=== PATIENT | male | born 1990 | race Caucasian/White ===

== ENCOUNTER 2016-09-05 13:30 | Emergency (ER) | payer MEDICAID ==
[2016-09-05 13:43] VITALS: BP 149/93
[2016-09-05] MEDS ORDERED: Ondansetron 4 MG Tab.DIS PO ONE (13:54)
--- NOTE | 2016-09-05 14:00 | EDM.PDOC ---
ED HPI GENERAL MEDICAL PROBLEM - General Chief Complaint: Abdominal Pain Stated Complaint: ABD PAIN Time Seen by Provider: 09/05/16 13:33 - History of Present Illness INITIAL COMMENTS - FREE TEXT/NARRATIVE: HISTORY AND PHYSICAL: History of present illness: The patient is a 26 y/o male with a long history of kidney stones, almost always on the left side, and presents with left flank pain radiating to the groin. According to the patient he was seen in the ED and at 2 weeks ago and had a CAT scan performed at that time telling him he had 3 kidney stones on the left. The patient states he was not given anything for pain and had a Zofran ODT to help manage the nausea and in the past he has always been able to pass these spontaneously. The patient states that the pain returned and was very strong and he was on his way here when he stopped at the gas station and the pain seemed to improve dramatically but he came here anyway. Patient states he has been vomiting all night and the Zofran has helped but he ran out. Currently in the ED the patient states his pain is manageable and he does not want pain meds but he is concerned about the nausea and would like a prescription for Zofran. He doesn't have any urinary complaints such as dysuria frequency or urgency and no hematuria. He has no diffuse abdominal pain and the pain is experiencing in the flank is similar to prior kidney stones. He has not had fever chills or diarrhea. Review of systems: As per history of present illness and below otherwise all systems reviewed and negative. Past medical history: As per history of present illness and as reviewed below otherwise noncontributory. Surgical history: As per history of present illness and as reviewed below otherwise noncontributory. Social history: No reported history of drug or alcohol abuse. Family history: As per history of present illness and as reviewed below otherwise noncontributory. Physical exam: General: Well-developed overweight male who is nontoxic and looks comfortable in the ED without distress. Vital signs been reviewed by me HEENT: Atraumatic, normocephalic, negative for conjunctival pallor or scleral icterus, mucous membranes moist, throat clear, neck supple, nontender, trachea midline. Lungs: Clear to auscultation, breath sounds equal bilaterally, chest nontender. Heart: S1S2, regular, negative for clicks, rubs, or JVD. Abdomen: Soft, nondistended, nontender without any reproducible pain. Negative for masses or hepatosplenomegaly. Negative for costovertebral tenderness. Genitourinary: Deferred. Rectal: Deferred. Extremities: Atraumatic, negative for cords or calf pain. Neurovascular unremarkable. Neuro: Awake, alert, oriented. Cranial nerves II through XII unremarkable. Cerebellum unremarkable. Motor and sensory unremarkable throughout. Exam nonfocal. Back: There are no midline step-offs or defects of the rest of the lumbar spine no CVA tenderness and no paralumbar or musculoskeletal discomfort on palpation Diagnostics: CBC CMP UA abdominal x-ray urine culture I discussed with the patient at length that a CT scan would be indicated to see whether or not the stone was too large to pass or if there was significant hydronephrosis or other abnormalities that would mandate admission and/or emergency urologic care. The patient insists that he does not want to have a CAT scan today and understands the risks and my concerns and accepts them. He did agree to an abdominal x-ray. He is aware that this may or may not be able to show the kidney stone. Therapeutics: Zofran ODT--- the patient was offered an IV, IV fluids IV pain meds and IV Zofran which he declines at this time. He says that the pain is manageable but he would like to Zofran only. Patient is aware of all testing results and he still would like to do further CAT scan as he's having minimal pain. Patient wants to return to work tonight and does want to Zofran for home. He is aware of my concerns that we cannot fully evaluated kidney stones and their location or any compromise to the kidney and he accepts that still. He is aware he can return at any time they have advised him on other reasons to return to the ED Impression: Left flank pain with history of kidney stones stable Definitive disposition and diagnosis as appropriate pending reevaluation and review of above. Treatments IN HOUSE COUNSEL: Reports: NSAIDS Lower Abdominal Pain Score (Numeric/FACES): 7 - Related Data Allergies Allergy/AdvReac Type Severity Reaction Status Date / Time adhesive tape Allergy Blisters Verified 09/05/16 13:37 diphenhydramine HCl Allergy Cannot Verified 09/05/16 13:37 [From Benadryl] Remember latex Allergy Blisters Verified 09/05/16 13:37 Home Meds: Home Meds RABEprazole Sodium [Rabeprazole Sodium] 1 tab PO BID 06/03/16 [History] Adalimumab [Humira] 40 mg SQ ASDIRECTED 09/05/16 [History] Past Medical History HEENT History: Reports: None Cardiovascular History: Reports: None Respiratory History: Reports: None Gastrointestinal History: Reports: GERD Genitourinary History: Reports: Renal calculus Musculoskeletal History: Reports: Fracture Other Musculoskeletal History: hx of fx right arm and both feet Neurological History: Reports: Concussion, Other (see below) Other Neuro History: hx of motion sickness Psychiatric History: Reports: Anxiety Endocrine/Metabolic History: Reports: Obesity/BMI 30+ Hematologic History: Reports: None Immunologic History: Reports: None Oncologic (Cancer) History: Reports: None Dermatologic History: Reports: Psoriasis Other Dermatologic History: taking Humira - Past Surgical History Head Surgeries/Procedures: Reports: None HEENT Surgical History: Reports: Tonsillectomy Cardiovascular Surgical History: Reports: None Respiratory Surgical History: Reports: None GI Surgical History: Reports: None Male Surgical History: Reports: None Endocrine Surgical History: Reports: None Neurological Surgical History: Reports: None Musculoskeletal Surgical History: Reports: None Oncologic Surgical History: Reports: None Dermatological Surgical History: Reports: None Social & Family History - Family History Family Medical History: Noncontributory - Tobacco Use Smoking Status *Q: Never Smoker Years of Tobacco use: 2 Packs/Tins Daily: 1 - Caffeine Use Caffeine Use: Reports: Soda Other Caffeine Use: 2 cans daily - Recreational Drug Use Recreational Drug Use: No Drug Use in Last 12 Months: No ED ROS GENERAL - Review of Systems Review Of Systems: ROS reveals no pertinent complaints other than HPI. ED EXAM, GENERAL - Physical Exam Exam: See Below (See dictation) Course - Vital Signs Last Recorded V/S: Last Vital Signs Temp 36.8 C 09/05/16 13:39 Pulse 105 H 09/05/16 13:39 Resp 16 09/05/16 13:39 BP 149/93 H 09/05/16 13:39 Pulse Ox 93 L 09/05/16 13:39 - Orders/Labs/Meds Orders: Active Orders 24 hr Category Date Time Status Abdomen 1V Flat [CR] Stat Exams 09/05/16 14:01 Taken CULTURE URINE [RM] Stat Lab 09/05/16 14:00 Received Labs: Laboratory Tests 09/05/16 09/05/16 09/05/16 Range/Units 14:00 14:20 14:20 WBC 6.73 (4.0-11.0) K/uL RBC 5.15 (4.50-5.90) M/uL Hgb 14.6 (13.0-17.0) g/dL Hct 43.8 (38.0-50.0) % MCV 85.0 (80.0-98.0) fL MCH 28.3 (27.0-32.0) pg MCHC 33.3 (31.0-37.0) g/dL RDW Std Deviation 37.4 (28.0-62.0) fl RDW Coeff of Nicolle 12 (11.0-15.0) % Plt Count 200 (150-400) K/uL MPV 10.20 (7.40-12.00) fL Neut % (Auto) 49.6 (48.0-80.0) % Lymph % (Auto) 39.4 (16.0-40.0) % [place] % (Auto) 8.2 (0.0-15.0) % Eos % (Auto) 2.5 (0.0-7.0) % Baso % (Auto) 0.3 (0.0-1.5) % Neut # (Auto) 3.3 (1.4-5.7) K/uL Lymph # (Auto) 2.7 H (0.6-2.4) K/uL [place] # (Auto) 0.6 (0.0-0.8) K/uL Eos # (Auto) 0.2 (0.0-0.7) K/uL Baso # (Auto) 0.0 (0.0-0.1) K/uL Nucleated RBC % 0.0 /100WBC Nucleated RBCs # 0 K/uL Sodium 140 (136-146) mmol/L Potassium 4.3 (3.5-5.1) mmol/L Chloride 110 (98-110) mmol/L Carbon Dioxide 24 (21-31) mmol/L BUN 11 (6.0-23.0) mg/dL Creatinine 0.8 (0.6-1.5) mg/dL Est Cr Clr Drug Dosing 153.58 mL/min Estimated GFR (MDRD) > 60.0 ml/min Glucose 95 (60-110) mg/dL Calcium 9.1 (8.8-10.8) mg/dL Total Bilirubin 0.4 (0.1-1.5) mg/dL AST 15 (5-40) IU/L ALT 24 (8-54) IU/L Alkaline Phosphatase 42 (40-150) Total Protein 6.8 (6.0-8.0) g/dL Albumin 4.0 (3.5-5.0) g/dL Globulin 2.8 (2.0-3.5) g/dL Albumin/Globulin Ratio 1.4 (1.3-2.8) Urine Color YELLOW Urine Appearance CLEAR Urine pH 5.5 (5.0-8.0) Ur Specific [place] 1.020 (1.001-1.035) Urine Protein NEGATIVE (NEGATIVE) mg/dL Urine Glucose (UA) NEGATIVE (NEGATIVE) mg/dL Urine Ketones NEGATIVE (NEGATIVE) mg/dL Urine Occult Blood TRACE-INTACT (NEGATIVE) Urine Nitrite NEGATIVE (NEGATIVE) Urine Bilirubin NEGATIVE (NEGATIVE) Urine Urobilinogen 0.2 (<2.0) EU/dL Ur Leukocyte Esterase NEGATIVE (NEGATIVE) Urine RBC 0-3 (0-2/HPF) Urine WBC 0-2 (0-5/HPF) Ur Epithelial Cells RARE (NONE-FEW) Ur Renal Epithelial Cell RARE Urine Bacteria RARE (NEGATIVE) Meds: Medications Discontinued Medications Generic Name Dose Route Start Last Admin Trade Name Freq PRN Reason Stop Dose Admin Ondansetron HCl 4 mg 09/05/16 13:54 09/05/16 13:59 Zofran Odt PO 09/05/16 13:55 4 mg ONETIME ONE Administration Departure - Departure Time of Disposition: 15:12 Disposition: Home, Self-Care 01 Condition: good Clinical Impression: Left flank pain Forms: ED Department Discharge Additional Instructions: The following information is given to patients seen in the emergency department who are being discharged to home. This information is to outline your options for follow-up care. We provide all patients seen in our emergency department with a follow-up referral. The need for follow-up, as well as the timing and circumstances, are variable depending upon the specifics of your emergency department visit. If you don't have a primary care physician on staff, we will provide you with a referral. We always advise you to contact your personal physician following an emergency department visit to inform them of the circumstance of the visit and for follow-up with them and/or the need for any referrals to a consulting specialist. The emergency department will also refer you to a specialist when appropriate. This referral assures that you have the opportunity for followup care with a specialist. All of these measure are taken in an effort to provide you with optimal care, which includes your followup. Under all circumstances we always encourage you to contact your private physician who remains a resource for coordinating your care. When calling for followup care, please make the office aware that this follow-up is from your recent emergency room visit. If for any reason you are refused follow-up, please contact the [facility] emergency department at and ask to speak to the emergency department charge nurse. [facility] Primary care- Internal Medicine and Family [facility] [address] [place] [id number] [facility] Specialty Care-Urology [address] [place] [id number] Push hydration and avoid caffeinated products. Use Zofran as needed and over- the-counter Tylenol or ibuprofen for pain. Please return to ER as needed and as discussed. Please followup with primary care and/or our urologist for further care and evaluation - My Orders Last 24 Hours: My Active Orders 09/05/16 14:00 CULTURE URINE [RM] Stat 09/05/16 14:01 Abdomen 1V Flat [CR] Stat - Assessment/Plan Last 24 Hours: My Active Orders 09/05/16 14:00 CULTURE URINE [RM] Stat 09/05/16 14:01 Abdomen 1V Flat [CR] Stat
[2016-09-05 14:52] LABS: CHLORIDE,CL 110 mmol/L (98-110); SODIUM,NA 140 mmol/L (136-146)
--- NOTE | 2016-09-07 10:32 | CR ---
EXAM DATE: 09/05/16 PATIENT'S AGE: 26 Patient: LANA MONCADA Facility: [place], [place] Site . Site : 1990 Study: XRay Abdomen [id number] 2:12:23 PM Ordering Physician: Sonya Taylor Final Report: HISTORY: Abdominal pain and history of stones. Comparison: None. Findings: Normal bowel gas pattern. No evidence for renal or ureteral stones. Moderate amount of stool present. Dictated by María Diehl MD @ Sep 05 2016 2:56PM (Electronic Signature) Report Signed by Proxy and Original Signed Document filed in the Medical Record. MTDD
== END 2016-09-05 15:31 | disposition home or self-care (01) ==
LOC: MW.ED 13:30
DX: R10.30 Lower abdominal pain, unspecified (principal); R11.10 Vomiting, unspecified; K21.9 Gastro-esophageal reflux disease without esophagitis; E66.9 Obesity, unspecified; Z88.6 Allergy status to analgesic agent; Z88.8 Allergy status to other drugs, medicaments and biological substances; Z91.040 Latex allergy status; Z79.899 Other long term (current) drug therapy; Z87.442 Personal history of urinary calculi; Z68.30 Body mass index [BMI] 30.0-30.9, adult; Z98.890 Other specified postprocedural states
CPT/HCPCS: 36415; 74000; 80053; 81001; 85025; 87086; 99284; A9270; 99283

== ENCOUNTER 2016-09-27 21:17 | Emergency (ER) | payer MEDICAID ==
[2016-09-27] MEDS ORDERED: HYDROmorphone 2 MG/ML Syringe IVPUSH ONE (21:33)
[2016-09-27] MEDS ORDERED: Ketorolac 30 MG/ML SDV IVPUSH ONE (21:33)
[2016-09-27] MEDS ORDERED: Tamsulosin 0.4 MG Cap.ER PO ONE (21:33)
[2016-09-27] MEDS ORDERED: Sodium Chloride 0.9% 1,000 ML IV ONE (21:33)
[2016-09-27] MEDS ORDERED: Ondansetron 4 MG/2 ML SDV IVPUSH ONE ×2 (21:33→22:45)
--- NOTE | 2016-09-27 21:37 | EDM.PDOC ---
ED HPI GENERAL MEDICAL PROBLEM - General Chief Complaint: Gastrointestinal Problem Stated Complaint: POSSIBLE KIDNEY STONES Time Seen by Provider: 09/27/16 21:29 - History of Present Illness INITIAL COMMENTS - FREE TEXT/NARRATIVE: HISTORY AND PHYSICAL: History of present illness: Patient is 26-year-old white male history urolithiasis concern of left-sided abdominal pain consistent with recurrence of his kidney stones. He had associated nausea and vomiting has been worse for the last several days he had similar episode several weeks prior he has been seen by urology in the past no fever chills no trauma no other complaints Review of systems: As per history of present illness and below otherwise all systems reviewed and negative. Past medical history: As per history of present illness and as reviewed below otherwise noncontributory. Surgical history: As per history of present illness and as reviewed below otherwise noncontributory. Social history: No reported history of drug or alcohol abuse. Family history: As per history of present illness and as reviewed below otherwise noncontributory. Physical exam: HEENT: Atraumatic, normocephalic, pupils reactive, negative for conjunctival pallor or scleral icterus, mucous membranes moist, throat clear, neck supple, nontender, trachea midline. Lungs: Clear to auscultation, breath sounds equal bilaterally, chest nontender. Heart: S1S2, regular, negative for clicks, rubs, or JVD. Abdomen: Soft, nondistended, nontender. Negative for masses or hepatosplenomegaly. Negative for costovertebral tenderness. Pelvis: Stable nontender. Genitourinary: Deferred. Rectal: Deferred. Extremities: Atraumatic, negative for cords or calf pain. Neurovascular unremarkable. Neuro: Awake, alert, oriented. Cranial nerves II through XII unremarkable. Cerebellum unremarkable. Motor and sensory unremarkable throughout. Exam nonfocal. Diagnostics: CBC CMP UA CT abdomen and pelvis urine Therapeutics: Saline 1 L bolus Dilaudid 1 mg IV Zofran thermograms IV Toradol 30 mg IV Flomax 0.4 mg by mouth Impression: #1 left-sided abdominal pain #2 history urolithiasis Definitive disposition and diagnosis as appropriate pending reevaluation and review of above. Left Lower Pelvic Pain Score (Numeric/FACES): 10 - Related Data Allergies Allergy/AdvReac Type Severity Reaction Status Date / Time adhesive tape Allergy Blisters Verified 09/27/16 22:01 diphenhydramine HCl Allergy Cannot Verified 09/27/16 22:01 [From Benadryl] Remember latex Allergy Blisters Verified 09/27/16 22:01 Home Meds: Home Meds RABEprazole Sodium [Rabeprazole Sodium] 1 tab PO BID 06/03/16 [History] Adalimumab [Humira] 40 mg SQ ASDIRECTED 09/05/16 [History] Past Medical History HEENT History: Reports: None Cardiovascular History: Reports: None Respiratory History: Reports: None Gastrointestinal History: Reports: GERD Genitourinary History: Reports: Renal calculus Musculoskeletal History: Reports: Fracture Other Musculoskeletal History: hx of fx right arm and both feet Neurological History: Reports: Concussion, Other (see below) Other Neuro History: hx of motion sickness Psychiatric History: Reports: Anxiety Endocrine/Metabolic History: Reports: Obesity/BMI 30+ Hematologic History: Reports: None Immunologic History: Reports: None Oncologic (Cancer) History: Reports: None Dermatologic History: Reports: Psoriasis Other Dermatologic History: taking Humira - Past Surgical History Head Surgeries/Procedures: Reports: None HEENT Surgical History: Reports: Tonsillectomy Cardiovascular Surgical History: Reports: None Respiratory Surgical History: Reports: None GI Surgical History: Reports: None Male Surgical History: Reports: None Endocrine Surgical History: Reports: None Neurological Surgical History: Reports: None Musculoskeletal Surgical History: Reports: None Oncologic Surgical History: Reports: None Dermatological Surgical History: Reports: None Social & Family History - Family History Family Medical History: Noncontributory - Tobacco Use Smoking Status *Q: Never Smoker Years of Tobacco use: 2 Packs/Tins Daily: 1 - Caffeine Use Caffeine Use: Reports: Soda Other Caffeine Use: 2 cans daily - Recreational Drug Use Recreational Drug Use: No Drug Use in Last 12 Months: No ED ROS GENERAL - Review of Systems Review Of Systems: ROS reveals no pertinent complaints other than HPI. ED EXAM, GENERAL - Physical Exam Exam: See Below (See dictation) Course - Vital Signs Text/Narrative:: Patient's emergency room course has been unremarkable there's been no vomiting he did require a repeat dosage of Dilaudid for pain he is receiving IV fluids and his workup includes a CBC with a white count of 14,000 CT of the abdomen and pelvis was negative for urolithiasis or any other inflammatory changes or some liquid stool reported in the colon suggestive of possible enteritis patient has not had any diarrhea or other concerns. I discussed with parents and patient at length admission for observation as a option in the context of his leukocytosis and abdominal pain they preferred discharge home with close followup and will return for persistent worsening pain nausea vomiting fever or chills as discussed impression is #1 left-sided abdominal pain #2 leukocytosis # 3 history of urolithiasis Last Recorded V/S: Last Vital Signs Temp 38.1 C 09/27/16 21:59 Pulse 109 H 09/27/16 21:59 Resp 22 H 09/27/16 21:59 BP 135/75 09/27/16 21:59 Pulse Ox 97 09/27/16 21:59 - Orders/Labs/Meds Orders: Active Orders 24 hr Category Date Time Status Abdomen Pelvis wo Cont [CT] Stat Exams 09/27/16 21:33 Taken CULTURE URINE [RM] Stat Lab 09/27/16 21:00 Received Labs: Laboratory Tests 09/27/16 09/27/16 09/27/16 Range/Units 21:00 21:46 21:46 WBC 14.95 H (4.0-11.0) K/uL RBC 5.45 (4.50-5.90) M/uL Hgb 15.9 (13.0-17.0) g/dL Hct 46.4 (38.0-50.0) % MCV 85.1 (80.0-98.0) fL MCH 29.2 (27.0-32.0) pg MCHC 34.3 (31.0-37.0) g/dL RDW Std Deviation 39.1 (28.0-62.0) fl RDW Coeff of Nicolle 13 (11.0-15.0) % Plt Count 197 (150-400) K/uL MPV 10.10 (7.40-12.00) fL Neut % (Auto) 85.7 H (48.0-80.0) % Lymph % (Auto) 8.8 L (16.0-40.0) % [place] % (Auto) 3.7 (0.0-15.0) % Eos % (Auto) 1.7 (0.0-7.0) % Baso % (Auto) 0.1 (0.0-1.5) % Neut # (Auto) 12.8 H (1.4-5.7) K/uL Lymph # (Auto) 1.3 (0.6-2.4) K/uL [place] # (Auto) 0.6 (0.0-0.8) K/uL Eos # (Auto) 0.3 (0.0-0.7) K/uL Baso # (Auto) 0.0 (0.0-0.1) K/uL Nucleated RBC % 0.0 /100WBC Nucleated RBCs # 0 K/uL Sodium 143 (136-146) mmol/L Potassium 4.3 (3.5-5.1) mmol/L Chloride 107 (98-110) mmol/L Carbon Dioxide 26 (21-31) mmol/L BUN 13 (6.0-23.0) mg/dL Creatinine 1.0 (0.6-1.5) mg/dL Est Cr Clr Drug Dosing 122.87 mL/min Estimated GFR (MDRD) > 60.0 ml/min Glucose 97 (60-110) mg/dL Calcium 9.6 (8.8-10.8) mg/dL Total Bilirubin 0.3 (0.1-1.5) mg/dL AST 19 (5-40) IU/L ALT 27 (8-54) IU/L Alkaline Phosphatase 39 L (40-150) Total Protein 7.4 (6.0-8.0) g/dL Albumin 4.2 (3.5-5.0) g/dL Globulin 3.2 (2.0-3.5) g/dL Albumin/Globulin Ratio 1.3 (1.3-2.8) Urine Color YELLOW Urine Appearance CLEAR Urine pH 6.0 (5.0-8.0) Ur Specific [place] 1.020 (1.001-1.035) Urine Protein NEGATIVE (NEGATIVE) mg/dL Urine Glucose (UA) NEGATIVE (NEGATIVE) mg/dL Urine Ketones NEGATIVE (NEGATIVE) mg/dL Urine Occult Blood NEGATIVE (NEGATIVE) Urine Nitrite NEGATIVE (NEGATIVE) Urine Bilirubin NEGATIVE (NEGATIVE) Urine Urobilinogen 0.2 (<2.0) EU/dL Ur Leukocyte Esterase NEGATIVE (NEGATIVE) Urine RBC 0-1 (0-2/HPF) Urine WBC 0-2 (0-5/HPF) Ur Epithelial Cells OCCASIONAL (NONE-FEW) Urine Bacteria RARE (NEGATIVE) Urine Mucus LIGHT (NONE-MOD) Meds: Medications Discontinued Medications Generic Name Dose Route Start Last Admin Trade Name Johnathanq PRN Reason Stop Dose Admin Hydromorphone HCl 1 mg 09/27/16 21:33 09/27/16 21:59 Dilaudid IVPUSH 09/27/16 21:34 1 mg ONETIME ONE Administration Hydromorphone HCl 1 mg 09/27/16 22:47 09/27/16 22:53 Dilaudid IVPUSH 09/27/16 22:48 1 mg ONETIME ONE Administration Sodium Chloride 1,000 mls @ 999 mls/hr 09/27/16 21:33 09/27/16 21:59 Normal Saline IV 09/27/16 22:33 999 mls/hr STAT ONE Administration Ketorolac Tromethamine 30 mg 09/27/16 21:33 09/27/16 21:59 Toradol IVPUSH 09/27/16 21:34 30 mg ONETIME ONE Administration Ondansetron HCl 4 mg 09/27/16 21:33 09/27/16 21:59 Zofran IVPUSH 09/27/16 21:34 4 mg ONETIME ONE Administration Ondansetron HCl 4 mg 09/27/16 22:45 09/27/16 22:53 Zofran IVPUSH 09/27/16 22:46 4 mg ONETIME ONE Administration Tamsulosin HCl 0.4 mg 09/27/16 21:33 09/27/16 22:05 Flomax PO 09/27/16 21:34 0.4 mg ONETIME ONE Administration Departure - Departure Time of Disposition: 23:04 Disposition: Home, Self-Care 01 Condition: good Clinical Impression: Abdominal pain Referrals: Roderick Rubi MD [Primary Care Provider] - Forms: ED Department Discharge Additional Instructions: The following information is given to patients seen in the emergency department who are being discharged to home. This information is to outline your options for follow-up care. We provide all patients seen in our emergency department with a follow-up referral. The need for follow-up, as well as the timing and circumstances, are variable depending upon the specifics of your emergency department visit. If you don't have a primary care physician on staff, we will provide you with a referral. We always advise you to contact your personal physician following an emergency department visit to inform them of the circumstance of the visit and for follow-up with them and/or the need for any referrals to a consulting specialist. The emergency department will also refer you to a specialist when appropriate. This referral assures that you have the opportunity for followup care with a specialist. All of these measure are taken in an effort to provide you with optimal care, which includes your followup. Under all circumstances we always encourage you to contact your private physician who remains a resource for coordinating your care. When calling for followup care, please make the office aware that this follow-up is from your recent emergency room visit. If for any reason you are refused follow-up, please contact the [facility] emergency department at and asked to speak to the emergency department charge nurse. Clear liquids x24 hours follow up primary medical doctor one to 2 days return as needed as discussed - My Orders Last 24 Hours: My Active Orders 09/27/16 21:00 CULTURE URINE [RM] Stat 09/27/16 21:33 Abdomen Pelvis wo Cont [CT] Stat - Assessment/Plan Last 24 Hours: My Active Orders 09/27/16 21:00 CULTURE URINE [RM] Stat 09/27/16 21:33 Abdomen Pelvis wo Cont [CT] Stat
[2016-09-27 22:16] LABS: CHLORIDE,CL 107 mmol/L (98-110); SODIUM,NA 143 mmol/L (136-146)
[2016-09-27] MEDS ORDERED: HYDROmorphone 1 MG/ML Syringe IVPUSH ONE (22:47)
[2016-09-28 04:20] VITALS: BP 155/91
--- NOTE | 2016-09-28 14:00 | CT ---
EXAM DATE: 09/27/16 PATIENT'S AGE: 26 Patient: LANA MONCADA Facility: [place], [place] Site . Site : 1990 Study: CT Abdomen/Pelvis [id number]/30/2017 10:31:36 PM Ordering Physician: Gregory Rinaldi Final Report: HISTORY: Left flank pain. TECHNIQUE: The abdomen and pelvis was scanned using helical technique at 3 mm intervals without IV contrast. Sagittal and coronal reconstructions were performed. FINDINGS: Lung bases: Two abutting blebs are seen at the posterior right lower lobe. Liver and gallbladder: The liver parenchyma is homogeneous. No calcified gallstones. Spleen, pancreas and adrenal glands: Unremarkable. Kidneys and bladder: There are 4 small nonobstructing stones seen within the right kidney. There 2 small nonobstructing stones in the midpole of the left kidney. There is no hydronephrosis or ureteral stone. Retroperitoneum and lymph nodes: The somewhat aorta is normal in caliber. There are a few small periaortic lymph nodes present with short-axis diameter less than 10 mm. GI tract: There may be a small hiatal hernia. The stomach is decompressed. Fluid is seen in nondilated small bowel loops. The appendix is normal. There is liquid stool seen throughout the colon. There is no free air in the abdomen. There is no free fluid the pelvis. Pelvic organs: Prostate is normal. Abdominal wall: Small fat containing umbilical hernia without incarceration. Osseous structures: There are bilateral L5 pars defects with a minimally spondylolisthesis of L5 on S1. IMPRESSION: 1. Small nonobstructing stones are seen within both kidneys. There is no evidence of hydronephrosis or ureteral obstruction. 2. Normal appendix. 3. Bilateral L5 pars defects with grade 1 spondylolisthesis of L5 on S1. 4. Possible small hiatal hernia. 5. There is some fluid seen in nondilated small bowel with liquid stool in colon suggesting enteritis. Dictated by Rosamaria Fernandez MD @ 09/27/2016 10:50:38 PM Dictated by: Rosamaria Fernandez MD @ 09/27/2016 22:51:03 (Electronic Signature) Report Signed by Proxy. [facility] HOSPITALJessica
== END 2016-09-27 23:16 | disposition home or self-care (01) ==
LOC: MW.ED 21:17
DX: R10.9 Unspecified abdominal pain (principal); D72.829 Elevated white blood cell count, unspecified; K21.9 Gastro-esophageal reflux disease without esophagitis; F41.9 Anxiety disorder, unspecified; Z91.040 Latex allergy status; Z79.899 Other long term (current) drug therapy; Z88.9 Allergy status to unspecified drugs, medicaments and biological substances; Z87.442 Personal history of urinary calculi
CPT/HCPCS: 36415; 74176; 80053; 81001; 85025; 87086; A9270; J1170; J1885; J2405; J7040; 96361; 96374; 96375; 96376; 99284; 99284-25

== ENCOUNTER 2019-02-12 13:51 | Emergency (ER) | payer MEDICAID ==
[2019-02-12 14:01] VITALS: BP 136/77; PULSE 69
--- NOTE | 2019-02-12 14:17 | EDM.PDOC ---
ED HPI GENERAL MEDICAL PROBLEM - General Chief Complaint: General Stated Complaint: LEFT SIDE OF FACE SWELLING Time Seen by Provider: 02/12/19 14:14 Source of Information: Reports: Patient History Limitations: Reports: No Limitations - History of Present Illness INITIAL COMMENTS - FREE TEXT/NARRATIVE: HISTORY AND PHYSICAL: History of present illness: Patient is a 28-year-old male presents to the ED with complaint of left jaw swelling x 3 days as well as ear pain and nasal drainage. He denies fevers, chills, nausea, vomiting, tooth or mouth pain, sore throat. Review of systems: As per history of present illness and below otherwise all systems reviewed and negative. Past medical history: As per history of present illness and as reviewed below otherwise noncontributory. Surgical history: As per history of present illness and as reviewed below otherwise noncontributory. Social history: No reported history of drug or alcohol abuse. Family history: As per history of present illness and as reviewed below otherwise noncontributory. Physical exam: General: Patient sitting comfortably in no acute distress and nontoxic appearing HEENT: Left anterior cervical LAD. Left TM is erythematous and bulging with loss of light reflex. Atraumatic, normocephalic, pupils reactive, negative for conjunctival pallor or scleral icterus, mucous membranes moist, throat clear, neck supple, nontender, trachea midline. No meningeal signs. Lungs: Clear to auscultation, breath sounds equal bilaterally, chest nontender. Heart: S1S2, regular, negative for clicks, rubs, or overt murmur. Abdomen: Soft, nondistended, nontender. Negative for masses or hepatosplenomegaly. Negative for costovertebral tenderness. No rigidity, rebound , guarding. Pelvis: Stable nontender. Genitourinary: Deferred. Rectal: Deferred. Extremities: Atraumatic, negative for cords or calf pain. Neurovascular unremarkable. Neuro: Awake, alert, oriented. Cranial nerves II through XII unremarkable. Cerebellum unremarkable. Motor and sensory unremarkable throughout. Exam nonfocal. Notes: Diagnostics: [] Therapeutics: [] Prescriptions: Impression: Augmentin Plan: Take antibiotic as instructed Follow up with primary care provider Return to ED As needed as discussed Definitive disposition and diagnosis as appropriate pending reevaluation and review of above. Left Ear Pain Score (Numeric/FACES): 5 - Related Data Allergies Allergy/AdvReac Type Severity Reaction Status Date / Time adhesive tape Allergy Blisters Verified 09/27/16 22:01 codeine Allergy Cannot Verified 02/12/19 13:57 Remember diphenhydramine HCl Allergy Cannot Verified 09/27/16 22:01 [From Benadryl] Remember latex Allergy Blisters Verified 09/27/16 22:01 Home Meds: Home Meds Adalimumab [Humira] 40 mg SQ ASDIRECTED 09/05/16 [History] ALPRAZolam [Xanax] 2 mg PO TID 02/12/19 [History] Amoxicillin/Potassium Clav [Augmentin 875-125 Tablet] 1 each PO BID 7 Days #14 tablet 02/12/19 [Rx] Past Medical History - Past Health History Medical/Surgical History: Denies Medical/Surgical History HEENT History: Reports: None Cardiovascular History: Reports: None Respiratory History: Reports: None Gastrointestinal History: Reports: GERD Genitourinary History: Reports: Renal Calculus Musculoskeletal History: Reports: Fracture Other Musculoskeletal History: hx of fx right arm and both feet Neurological History: Reports: Concussion, Other (See Below) Other Neuro History: hx of motion sickness Psychiatric History: Reports: Anxiety Endocrine/Metabolic History: Reports: Obesity/BMI 30+ Hematologic History: Reports: None Immunologic History: Reports: None Oncologic (Cancer) History: Reports: None Dermatologic History: Reports: Psoriasis Other Dermatologic History: taking Humira - Infectious Disease History Infectious Disease History: Reports: None - Past Surgical History Head Surgeries/Procedures: Reports: None HEENT Surgical History: Reports: Tonsillectomy Cardiovascular Surgical History: Reports: None Respiratory Surgical History: Reports: None GI Surgical History: Reports: None Endocrine Surgical History: Reports: None Musculoskeletal Surgical History: Reports: None Oncologic Surgical History: Reports: None Dermatological Surgical History: Reports: None Social & Family History - Family History Family Medical History: Noncontributory - Caffeine Use Caffeine Use: Reports: Soda Other Caffeine Use: 2 cans daily - Recreational Drug Use Recreational Drug Use: No ED ROS GENERAL - Review of Systems Review Of Systems: ROS reveals no pertinent complaints other than HPI. ED EXAM, GENERAL - Physical Exam Exam: See Below (see dictation) Course - Vital Signs Last Recorded V/S: Last Vital Signs Temp 97.8 F 02/12/19 13:59 Pulse 69 02/12/19 13:59 Resp 18 02/12/19 13:59 BP 136/77 02/12/19 13:59 Pulse Ox Departure - Departure Time of Disposition: 14:17 Disposition: Home, Self-Care 01 Condition: Good Clinical Impression: Left otitis media - Discharge Information Prescriptions: Amoxicillin/Potassium Clav [Augmentin 875-125 Tablet] 1 each PO BID 7 Days #14 tablet Referrals: PCP,None [Primary Care Provider] - Additional Instructions: The following information is given to patients seen in the emergency department who are being discharged to home. This information is to outline your options for follow-up care. We provide all patients seen in our emergency department with a follow-up referral. The need for follow-up, as well as the timing and circumstances, are variable depending upon the specifics of your emergency department visit. If you don't have a primary care physician on staff, we will provide you with a referral. We always advise you to contact your personal physician following an emergency department visit to inform them of the circumstance of the visit and for follow-up with them and/or the need for any referrals to a consulting specialist. The emergency department will also refer you to a specialist when appropriate. This referral assures that you have the opportunity for follow-up care with a specialist. All of these measure are taken in an effort to provide you with optimal care, which includes your follow-up. Under all circumstances we always encourage you to contact your private physician who remains a resource for coordinating your care. When calling for follow-up care, please make the office aware that this follow-up is from your recent emergency room visit. If for any reason you are refused follow-up, please contact the [facility] Emergency Department at and asked to speak to the emergency department charge nurse. [facility] [address] [place] [id number] [address] [address] Take antibiotic as instructed Follow up with primary care provider Return to ED As needed as discussed
== END 2019-02-12 14:21 | disposition home or self-care (01) ==
LOC: MW.ED 13:51
DX: H66.92 Otitis media, unspecified, left ear (principal); F41.9 Anxiety disorder, unspecified; E66.9 Obesity, unspecified; Z68.31 Body mass index [BMI] 31.0-31.9, adult; Z88.5 Allergy status to narcotic agent; Z88.8 Allergy status to other drugs, medicaments and biological substances; Z91.040 Latex allergy status; Z79.899 Other long term (current) drug therapy
CPT/HCPCS: 99282

== ENCOUNTER 2019-03-13 18:21 | Emergency (ER) | payer MEDICAID ==
[2019-03-13 19:00] VITALS: BP 140/106; PULSE 84
[2019-03-13] MEDS ORDERED: cefTRIAXone 1 GM in Lidocaine 1% 4 ML IM ONE (19:05)
--- NOTE | 2019-03-13 19:05 | EDM.PDOC ---
ED HPI GENERAL MEDICAL PROBLEM - General Chief Complaint: Upper Extremity Injury/Pain Stated Complaint: RIGHT HAND SWOLLEN Time Seen by Provider: 03/13/19 18:51 - History of Present Illness INITIAL COMMENTS - FREE TEXT/NARRATIVE: HISTORY AND PHYSICAL: History of present illness: Patient's 28-year-old male presents with a concern of swelling and redness to his right hand after he sustained a abrasion to his wrist and also 1 to the second digit he's had no fever chills nausea vomiting or other complaints. Review of systems: As per history of present illness and below otherwise all systems reviewed and negative. Past medical history: As per history of present illness and as reviewed below otherwise noncontributory. Surgical history: As per history of present illness and as reviewed below otherwise noncontributory. Social history: No reported history of drug or alcohol abuse. Family history: As per history of present illness and as reviewed below otherwise noncontributory. Physical exam: HEENT: Atraumatic, normocephalic, pupils reactive, negative for conjunctival pallor or scleral icterus, mucous membranes moist, throat clear, neck supple, nontender, trachea midline. Lungs: Clear to auscultation, breath sounds equal bilaterally, chest nontender. Heart: S1S2, regular, negative for clicks, rubs, or JVD. Abdomen: Soft, nondistended, nontender. Negative for masses or hepatosplenomegaly. Negative for costovertebral tenderness. Pelvis: Stable nontender. Genitourinary: Deferred. Rectal: Deferred. Extremities: Patient has erythema noted with early ascending lymphangitis dorsal aspect of his right hand he has a minor abrasion to the middle third of the dorsal aspect of second digit and a minor abrasion also the dorsal aspect on the right wrist. No crepitation no evidence of toxic tenosynovium right his neurovascular exam unremarkable Neuro: Awake, alert, oriented. Cranial nerves II through XII unremarkable. Cerebellum unremarkable. Motor and sensory unremarkable throughout. Exam nonfocal. Diagnostics: Deferred Therapeutics: Rocephin 1 g IM Impression: #1 cellulitis right hand with early ascending lymphangitis Definitive disposition and diagnosis as appropriate pending reevaluation and review of above. right hand Pain Score (Numeric/FACES): 4 - Related Data Allergies Allergy/AdvReac Type Severity Reaction Status Date / Time adhesive tape Allergy Blisters Verified 03/13/19 18:31 codeine Allergy Cannot Verified 03/13/19 18:31 Remember diphenhydramine HCl Allergy Cannot Verified 03/13/19 18:31 [From Benadryl] Remember latex Allergy Blisters Verified 03/13/19 18:31 Home Meds: Home Meds Adalimumab [Humira] 40 mg SQ ASDIRECTED 09/05/16 [History] ALPRAZolam [Xanax] 2 mg PO TID 02/12/19 [History] Dextroamphetamine/Amphetamine [Adderall 20 mg Tablet] 20 mg PO DAILY 03/13/19 [ History] Past Medical History - Past Health History Medical/Surgical History: Denies Medical/Surgical History HEENT History: Reports: None Cardiovascular History: Reports: None Respiratory History: Reports: None Gastrointestinal History: Reports: GERD Genitourinary History: Reports: Renal Calculus Musculoskeletal History: Reports: Fracture Other Musculoskeletal History: hx of fx right arm and both feet Neurological History: Reports: Concussion, Other (See Below) Other Neuro History: hx of motion sickness Psychiatric History: Reports: ADHD, Anxiety Endocrine/Metabolic History: Reports: Obesity/BMI 30+ Hematologic History: Reports: None Immunologic History: Reports: None Oncologic (Cancer) History: Reports: None Dermatologic History: Reports: Psoriasis Other Dermatologic History: taking [facility] - Infectious Disease History Infectious Disease History: Reports: None - Past Surgical History Head Surgeries/Procedures: Reports: None HEENT Surgical History: Reports: Tonsillectomy Cardiovascular Surgical History: Reports: None Respiratory Surgical History: Reports: None GI Surgical History: Reports: EGD Endocrine Surgical History: Reports: None Musculoskeletal Surgical History: Reports: None Oncologic Surgical History: Reports: None Dermatological Surgical History: Reports: None Social & Family History - Family History Family Medical History: Noncontributory - Tobacco Use Smoking Status *Q: Never Smoker - Caffeine Use Caffeine Use: Reports: Soda Other Caffeine Use: 2 cans daily - Recreational Drug Use Recreational Drug Use: No Review of Systems - Review of Systems Review Of Systems: ROS reveals no pertinent complaints other than HPI. ED EXAM, GENERAL - Physical Exam Exam: See Below (See dictation) Course - Vital Signs Last Recorded V/S: Last Vital Signs Temp 36.0 C 03/13/19 18:31 Pulse 84 03/13/19 18:31 Resp 18 03/13/19 18:31 BP 140/106 H 03/13/19 18:31 Pulse Ox 100 03/13/19 18:31 Departure - Departure Time of Disposition: 19:03 Disposition: Home, Self-Care 01 Condition: Good Clinical Impression: Cellulitis - Discharge Information Referrals: PCP,None [Primary Care Provider] - Additional Instructions: The following information is given to patients seen in the emergency department who are being discharged to home. This information is to outline your options for follow-up care. We provide all patients seen in our emergency department with a follow-up referral. The need for follow-up, as well as the timing and circumstances, are variable depending upon the specifics of your emergency department visit. If you don't have a primary care physician on staff, we will provide you with a referral. We always advise you to contact your personal physician following an emergency department visit to inform them of the circumstance of the visit and for follow-up with them and/or the need for any referrals to a consulting specialist. The emergency department will also refer you to a specialist when appropriate. This referral assures that you have the opportunity for followup care with a specialist. All of these measure are taken in an effort to provide you with optimal care, which includes your followup. Under all circumstances we always encourage you to contact your private physician who remains a resource for coordinating your care. When calling for followup care, please make the office aware that this follow-up is from your recent emergency room visit. If for any reason you are refused follow-up, please contact the emergency department at and asked to speak to the emergency department charge nurse. Keflex as prescribed sling as directed follow-up reevaluation in emergency department 24-48 hours return as needed as discussed
== END 2019-03-13 19:49 | disposition home or self-care (01) ==
LOC: MW.ED 18:21
DX: L03.113 Cellulitis of right upper limb (principal); E66.9 Obesity, unspecified; Z91.040 Latex allergy status; Z88.5 Allergy status to narcotic agent; Z88.8 Allergy status to other drugs, medicaments and biological substances; Z91.048 Other nonmedicinal substance allergy status; Z68.28 Body mass index [BMI] 28.0-28.9, adult
CPT/HCPCS: 96372; 99283; J0696; J2001

== ENCOUNTER 2019-04-14 05:35 | Emergency (ER) | payer MEDICAID ==
[2019-04-14] MEDS ORDERED: Ketorolac 30 MG/ML SDV IVPUSH ONE (05:48)
[2019-04-14] MEDS ORDERED: HYDROmorphone 1 MG/ML Syringe IVPUSH ONE (05:48)
[2019-04-14] MEDS ORDERED: Tamsulosin 0.4 MG Cap.ER PO ONE (05:48)
[2019-04-14] MEDS ORDERED: Ondansetron 4 MG/2 ML SDV IVPUSH ONE (05:48)
[2019-04-14] MEDS ORDERED: Sodium Chloride 0.9% 1,000 ML IV SCH (06:00)
--- NOTE | 2019-04-14 06:09 | EDM.PDOC ---
ED HPI GENERAL MEDICAL PROBLEM - General Chief Complaint: Abdominal Pain Stated Complaint: ABDOMINAL PAIN Time Seen by Provider: 04/14/19 06:01 - History of Present Illness INITIAL COMMENTS - FREE TEXT/NARRATIVE: HISTORY AND PHYSICAL: History of present illness: Patient is 28-year-old white male sensory concern of acute right flank pain associated nausea vomiting he denies trauma fever chills or other concern Review of systems: As per history of present illness and below otherwise all systems reviewed and negative. Past medical history: As per history of present illness and as reviewed below otherwise noncontributory. Surgical history: As per history of present illness and as reviewed below otherwise noncontributory. Social history: No reported history of drug or alcohol abuse. Family history: As per history of present illness and as reviewed below otherwise noncontributory. Physical exam: HEENT: Atraumatic, normocephalic, pupils reactive, negative for conjunctival pallor or scleral icterus, mucous membranes moist, throat clear, neck supple, nontender, trachea midline. Lungs: Clear to auscultation, breath sounds equal bilaterally, chest nontender. Heart: S1S2, regular, negative for clicks, rubs, or JVD. Abdomen: Soft, nondistended, nontender. Negative for masses or hepatosplenomegaly. Right-sided costovertebral tenderness. Pelvis: Stable nontender. Genitourinary: Deferred. Rectal: Deferred. Extremities: Atraumatic, negative for cords or calf pain. Neurovascular unremarkable. Neuro: Awake, alert, oriented. Cranial nerves II through XII unremarkable. Cerebellum unremarkable. Motor and sensory unremarkable throughout. Exam nonfocal. Diagnostics: CBC CMP UA CT abdomen and pelvis Therapeutics: Saline 1 L bolus Dilaudid 1 mg IV Toradol 30 mg IV Zofran 4 mg IV Flomax 0.4 mg by mouth Impression: #1 acute right flank pain Definitive disposition and diagnosis as appropriate pending reevaluation and review of above. right flank Pain Score (Numeric/FACES): 10 - Related Data Allergies Allergy/AdvReac Type Severity Reaction Status Date / Time adhesive tape Allergy Blisters Verified 04/14/19 05:59 codeine Allergy Cannot Verified 04/14/19 05:59 Remember diphenhydramine HCl Allergy Cannot Verified 04/14/19 05:59 [From Benadryl] Remember latex Allergy Blisters Verified 04/14/19 05:59 Home Meds: Home Meds Adalimumab [Humira] 40 mg SQ ASDIRECTED 09/05/16 [History] ALPRAZolam [Xanax] 2 mg PO TID 02/12/19 [History] Dextroamphetamine/Amphetamine [Adderall 20 mg Tablet] 20 mg PO DAILY 03/13/19 [ History] Past Medical History - Past Health History Medical/Surgical History: Denies Medical/Surgical History HEENT History: Reports: None Cardiovascular History: Reports: None Respiratory History: Reports: None Gastrointestinal History: Reports: GERD Genitourinary History: Reports: Renal Calculus Musculoskeletal History: Reports: Fracture Other Musculoskeletal History: hx of fx right arm and both feet Neurological History: Reports: Concussion, Other (See Below) Other Neuro History: hx of motion sickness Psychiatric History: Reports: ADHD, Anxiety Endocrine/Metabolic History: Reports: Obesity/BMI 30+ Hematologic History: Reports: None Immunologic History: Reports: None Oncologic (Cancer) History: Reports: None Dermatologic History: Reports: Psoriasis Other Dermatologic History: taking [facility] - Infectious Disease History Infectious Disease History: Reports: None - Past Surgical History Head Surgeries/Procedures: Reports: None HEENT Surgical History: Reports: Tonsillectomy Cardiovascular Surgical History: Reports: None Respiratory Surgical History: Reports: None GI Surgical History: Reports: EGD Endocrine Surgical History: Reports: None Musculoskeletal Surgical History: Reports: None Oncologic Surgical History: Reports: None Dermatological Surgical History: Reports: None Social & Family History - Family History Family Medical History: Noncontributory - Caffeine Use Caffeine Use: Reports: Soda Other Caffeine Use: 2 cans daily ED ROS GENERAL - Review of Systems Review Of Systems: Comprehensive ROS is negative, except as noted in HPI. ED EXAM, GENERAL - Physical Exam Exam: See Below (See dictation) Course - Vital Signs Last Recorded V/S: Last Vital Signs Temp 36 C 04/14/19 06:50 Pulse 62 04/14/19 06:50 Resp 18 04/14/19 06:50 BP 131/84 04/14/19 06:50 Pulse Ox 98 04/14/19 06:50 - Orders/Labs/Meds Orders: Active Orders 24 hr Category Date Time Status Sodium Chloride 0.9% [Normal Saline] 1,000 ml Med 04/14/19 06:00 Active IV ASDIRECTED Medication Orders Sodium Chloride (Normal Saline) 1,000 mls @ 999 mls/hr IV ASDIRECTED [place] Last Admin: 04/14/19 05:58 Dose: 999 mls/hr Labs: Laboratory Tests 04/14/19 04/14/19 04/14/19 Range/Units 05:47 05:47 06:30 WBC 9.60 (4.0-11.0) K/uL RBC 5.57 (4.50-5.90) M/uL Hgb 16.7 (13.0-17.0) g/dL Hct 48.3 (38.0-50.0) % MCV 86.7 (80.0-98.0) fL MCH 30.0 (27.0-32.0) pg MCHC 34.6 (31.0-37.0) g/dL RDW Std Deviation 40.1 (28.0-62.0) fl RDW Coeff of Nicolle 13 (11.0-15.0) % Plt Count 256 (150-400) K/uL MPV 10.10 (7.40-12.00) fL Neut % (Auto) 41.0 L (48.0-80.0) % Lymph % (Auto) 46.8 H (16.0-40.0) % [place] % (Auto) 8.1 (0.0-15.0) % Eos % (Auto) 3.8 (0.0-7.0) % Baso % (Auto) 0.3 (0.0-1.5) % Neut # (Auto) 3.9 (1.4-5.7) K/uL Lymph # (Auto) 4.5 H (0.6-2.4) K/uL [facility] # (Auto) 0.8 (0.0-0.8) K/uL Eos # (Auto) 0.4 (0.0-0.7) K/uL Baso # (Auto) 0.0 (0.0-0.1) K/uL Nucleated RBC % 0.0 /100WBC Nucleated RBCs # 0 K/uL Sodium 140 (136-148) mmol/L Potassium 4.4 (3.5-5.1) mmol/L Chloride 105 (98-107) mmol/L Carbon Dioxide 29.8 (21.0-32.0) mmol/L BUN 11 (7.0-18.0) mg/dL Creatinine 1.1 (0.8-1.3) mg/dL Est Cr Clr Drug Dosing 109.74 mL/min Estimated GFR (MDRD) > 60.0 ml/min Glucose 99 (74-106) mg/dL Calcium 9.3 (8.5-10.1) mg/dL Total Bilirubin 0.3 (0.2-1.0) mg/dL AST 16 (15-37) IU/L ALT 25 (14-63) IU/L Alkaline Phosphatase 51 (46-116) U/L Total Protein 7.6 (6.4-8.2) g/dL Albumin 3.8 (3.4-5.0) g/dL Globulin 3.8 (2.6-4.0) g/dL Albumin/Globulin Ratio 1.0 (0.9-1.6) Urine Color YELLOW Urine Appearance CLEAR Urine pH 5.5 (5.0-8.0) Ur Specific [place] 1.025 (1.001-1.035) Urine Protein NEGATIVE (NEGATIVE) mg/dL Urine Glucose (UA) NEGATIVE (NEGATIVE) mg/dL Urine Ketones NEGATIVE (NEGATIVE) mg/dL Urine Occult Blood LARGE H (NEGATIVE) Urine Nitrite NEGATIVE (NEGATIVE) Urine Bilirubin NEGATIVE (NEGATIVE) Urine Urobilinogen 0.2 (<2.0) EU/dL Ur Leukocyte Esterase NEGATIVE (NEGATIVE) Urine RBC 25-30 (0-2/HPF) Urine WBC 0-1 (0-5/HPF) Ur Epithelial Cells RARE (NONE-FEW) Urine Bacteria RARE (NEGATIVE) Meds: Medications Generic Name Dose Route Start Last Admin Trade Name Freq PRN Reason Stop Dose Admin Sodium Chloride 1,000 mls @ 999 mls/hr 04/14/19 06:00 04/14/19 05:58 Normal Saline IV 999 mls/hr ASDIRECTED [place] Administration Discontinued Medications Generic Name Dose Route Start Last Admin Trade Name Freq PRN Reason Stop Dose Admin Hydromorphone HCl 1 mg 04/14/19 05:48 04/14/19 05:58 Dilaudid IVPUSH 04/14/19 05:49 1 mg ONETIME ONE Administration Ketorolac Tromethamine 30 mg 04/14/19 05:48 04/14/19 05:59 Toradol IVPUSH 04/14/19 05:49 30 mg ONETIME ONE Administration Ondansetron HCl 4 mg 04/14/19 05:48 04/14/19 05:59 Zofran IVPUSH 04/14/19 05:49 4 mg ONETIME ONE Administration Tamsulosin HCl 0.4 mg 04/14/19 05:48 04/14/19 05:59 Flomax PO 04/14/19 05:49 0.4 mg ONETIME ONE Administration Departure - Departure Time of Disposition: 07:36 Disposition: Home, Self-Care 01 Condition: Good Clinical Impression: Ureterolithiasis - Discharge Information Referrals: Roderick Rubi MD [Primary Care Provider] - Forms: ED Department Discharge Additional Instructions: The following information is given to patients seen in the emergency department who are being discharged to home. This information is to outline your options for follow-up care. We provide all patients seen in our emergency department with a follow-up referral. The need for follow-up, as well as the timing and circumstances, are variable depending upon the specifics of your emergency department visit. If you don't have a primary care physician on staff, we will provide you with a referral. We always advise you to contact your personal physician following an emergency department visit to inform them of the circumstance of the visit and for follow-up with them and/or the need for any referrals to a consulting specialist. The emergency department will also refer you to a specialist when appropriate. This referral assures that you have the opportunity for followup care with a specialist. All of these measure are taken in an effort to provide you with optimal care, which includes your followup. Under all circumstances we always encourage you to contact your private physician who remains a resource for coordinating your care. When calling for followup care, please make the office aware that this follow-up is from your recent emergency room visit. If for any reason you are refused follow-up, please contact the [facility] emergency department at and asked to speak to the emergency department charge nurse. [facility] Specialty Care - Urology [facility] [place] [address] Hydrocodone Flomax Zofran as prescribed follow-up urology clinic above return as needed as discussed - My Orders Last 24 Hours: My Active Orders 04/14/19 06:00 Sodium Chloride 0.9% [Normal Saline] 1,000 ml IV ASDIRECTED - Assessment/Plan Last 24 Hours: My Active Orders 04/14/19 06:00 Sodium Chloride 0.9% [Normal Saline] 1,000 ml IV ASDIRECTED
[2019-04-14 06:26] LABS: BLOOD UREA NITROGEN,BUN 11 mg/dL (7.0-18.0); CARBON DIOXIDE,CO2 29.8 mmol/L (21.0-32.0); CHLORIDE,CL 105 mmol/L (98-107); GLUCOSE RANDOM 99 mg/dL (74-106); POTASSIUM,K 4.4 mmol/L (3.5-5.1); SODIUM,NA 140 mmol/L (136-148)
--- NOTE | 2019-04-14 06:35 | CT ---
INDICATION : Right flank pain TECHNIQUE : CT Scan of the abdomen pelvis. Stone protocol no contrast COMPARISON : September 27, 2016 FINDINGS: Kidneys and bladder: Bilateral nonobstructing calculi in both kidneys. Approximately 7 stones in the right kidney and stones in the left kidney. Right hydronephrosis. 3 mm calculus right ureter at the L3 level. The stones in both kidneys are less than 5 mm in diameter. The bladder is normal. Prostate: Normal in size. Miscellaneous abdomen: Liver, spleen, adrenal glands, pancreas unremarkable. No significant lymph node enlargement. GI tract unremarkable. Lung bases : Clear. Skeletal: Spondylolysis with bilateral pars defects L5. Grade 1 spondylolisthesis L5 on S1 with vacuum disc. IMPRESSION: 1. Right hydronephrosis and obstructing 3 millimeter calculus right ureter mid ureter at L3 level. 2. Moderate stone burden in both kidneys with multiple scattered small calculi measuring less than 5 millimeters. Some interval increase in stone burden since previous exam. 3. Spondylolysis and spondylolisthesis L5-S1. Please note that all CT scans at this facility use dose modulation, iterative reconstruction, and/or weight-based dosing when appropriate to reduce radiation dose to as low as reasonably achievable. Dictated by Jarret Omalley MD @ Apr 14 2019 6:34AM Signed by Dr. Jarret Omalley @ Apr 14 2019 6:34AM
[2019-04-14 07:43] VITALS: BP 150/90; PULSE 86
== END 2019-04-14 07:50 | disposition home or self-care (01) ==
LOC: MW.ED 05:35
DX: N13.2 Hydronephrosis with renal and ureteral calculous obstruction (principal); F41.9 Anxiety disorder, unspecified; E66.9 Obesity, unspecified; Z68.31 Body mass index [BMI] 31.0-31.9, adult; Z88.5 Allergy status to narcotic agent; Z91.041 Radiographic dye allergy status; Z91.048 Other nonmedicinal substance allergy status; Z88.8 Allergy status to other drugs, medicaments and biological substances; Z79.899 Other long term (current) drug therapy
CPT/HCPCS: 36415; 74176; 80053; 81001; 85025; 96361; 96374; 96375; 99284; A9270; J1170; J1885; J2405; J7040; J7030

== ENCOUNTER 2019-04-16 14:07 | Emergency (ER) | payer MEDICAID ==
[2019-04-16 14:22] VITALS: BP 159/102; PULSE 76
[2019-04-16] MEDS ORDERED: Sodium Chloride 0.9% 1,000 ML IV ONE (14:29)
[2019-04-16] MEDS ORDERED: Ketorolac 30 MG/ML SDV IVPUSH ONE (14:29)
[2019-04-16] MEDS ORDERED: Ondansetron 4 MG/2 ML SDV IVPUSH ONE (14:29)
--- NOTE | 2019-04-16 14:32 | EDM.PDOC ---
ED HPI GENERAL MEDICAL PROBLEM - General Chief Complaint: Genitourinary Problem Stated Complaint: KIDNEY STONES Time Seen by Provider: 04/16/19 14:26 - History of Present Illness INITIAL COMMENTS - FREE TEXT/NARRATIVE: HISTORY AND PHYSICAL: History of present illness: Patient 28-year-old white male presents with a concern of right-sided flank pain and renal colic he was seen last [place] by myself and had a 3 mm stone with mild hydro-that was mid ureter as I recall. He returns now with pain and nausea and vomiting. He has been taking his medications denies fever chills trauma or other concern Review of systems: As per history of present illness and below otherwise all systems reviewed and negative. Past medical history: As per history of present illness and as reviewed below otherwise noncontributory. Surgical history: As per history of present illness and as reviewed below otherwise noncontributory. Social history: No reported history of drug or alcohol abuse. Family history: As per history of present illness and as reviewed below otherwise noncontributory. Physical exam: HEENT: Atraumatic, normocephalic, pupils reactive, negative for conjunctival pallor or scleral icterus, mucous membranes moist, throat clear, neck supple, nontender, trachea midline. Lungs: Clear to auscultation, breath sounds equal bilaterally, chest nontender. Heart: S1S2, regular, negative for clicks, rubs, or JVD. Abdomen: Soft, nondistended, nontender. Negative for masses or hepatosplenomegaly. Right-sided costovertebral tenderness. Pelvis: Stable nontender. Genitourinary: Deferred. Rectal: Deferred. Extremities: Atraumatic, negative for cords or calf pain. Neurovascular unremarkable. Neuro: Awake, alert, oriented. Cranial nerves II through XII unremarkable. Cerebellum unremarkable. Motor and sensory unremarkable throughout. Exam nonfocal. Diagnostics: CBC CMP UA CT abdomen and pelvis Therapeutics: Saline 1 L bolus Zofran 4 mg IV Toradol 30 mg IV Impression: #1 renal colic Definitive disposition and diagnosis as appropriate pending reevaluation and review of above. right flank Pain Score (Numeric/FACES): 8 - Related Data Allergies Allergy/AdvReac Type Severity Reaction Status Date / Time adhesive tape Allergy Blisters Verified 04/16/19 14:22 codeine Allergy Cannot Verified 04/16/19 14:22 Remember diphenhydramine HCl Allergy Cannot Verified 04/16/19 14:22 [From Benadryl] Remember latex Allergy Blisters Verified 04/16/19 14:22 Home Meds: Home Meds Adalimumab [Humira] 40 mg SQ ASDIRECTED 09/05/16 [History] ALPRAZolam [Xanax] 2 mg PO TID 02/12/19 [History] Dextroamphetamine/Amphetamine [Adderall 20 mg Tablet] 20 mg PO DAILY 03/13/19 [ History] Hydrocodone/Acetaminophen [[place] 5-325 Tablet] 1 tab ASDIRECTED PRN 04/16/19 [ History] Ondansetron [Zofran ODT] 4 mg PO Q6H PRN 04/16/19 [History] Tamsulosin HCl [Flomax] 0.4 mg PO DAILY 04/16/19 [History] Past Medical History - Past Health History Medical/Surgical History: Denies Medical/Surgical History HEENT History: Reports: None Cardiovascular History: Reports: None Respiratory History: Reports: None Gastrointestinal History: Reports: GERD Genitourinary History: Reports: Renal Calculus Musculoskeletal History: Reports: Fracture Other Musculoskeletal History: hx of fx right arm and both feet Neurological History: Reports: Concussion, Other (See Below) Other Neuro History: hx of motion sickness Psychiatric History: Reports: ADHD, Anxiety Endocrine/Metabolic History: Reports: Obesity/BMI 30+ 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 Pump 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 Baker 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: 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 Hematologic History: Reports: None Immunologic History: Reports: None Oncologic (Cancer) History: Reports: None Dermatologic History: Reports: Psoriasis Other Dermatologic History: taking [facility] - Infectious Disease History Infectious Disease History: Reports: None - Past Surgical History Head Surgeries/Procedures: Reports: None HEENT Surgical History: Reports: Tonsillectomy Cardiovascular Surgical History: Reports: None Respiratory Surgical History: Reports: None GI Surgical History: Reports: EGD Endocrine Surgical History: Reports: None Musculoskeletal Surgical History: Reports: None Oncologic Surgical History: Reports: None Dermatological Surgical History: Reports: None Social & Family History - Family History Family Medical History: Noncontributory - Tobacco Use Smoking Status *Q: Never Smoker - Caffeine Use Caffeine Use: Reports: Soda Other Caffeine Use: 2 cans daily - Recreational Drug Use Recreational Drug Use: No ED ROS GENERAL - Review of Systems Review Of Systems: Comprehensive ROS is negative, except as noted in HPI. ED EXAM, GENERAL - Physical Exam Exam: See Below (See dictation) Course - Vital Signs Last Recorded V/S: Last Vital Signs Temp 37.1 C 04/16/19 14:20 Pulse 76 04/16/19 14:20 Resp 18 04/16/19 14:20 BP 159/102 H 04/16/19 14:20 Pulse Ox 97 04/16/19 14:20 - Orders/Labs/Meds Labs: Laboratory Tests 04/16/19 04/16/19 04/16/19 Range/Units 14:40 15:14 15:14 WBC 11.17 H (4.0-11.0) K/uL RBC 5.21 (4.50-5.90) M/uL Hgb 15.4 (13.0-17.0) g/dL Hct 45.0 (38.0-50.0) % MCV 86.4 (80.0-98.0) fL MCH 29.6 (27.0-32.0) pg MCHC 34.2 (31.0-37.0) g/dL RDW Std Deviation 39.1 (28.0-62.0) fl RDW Coeff of Nicolle 12 (11.0-15.0) % Plt Count 184 (150-400) K/uL MPV 9.90 (7.40-12.00) fL Neut % (Auto) 72.4 (48.0-80.0) % Lymph % (Auto) 18.7 (16.0-40.0) % [place] % (Auto) 6.9 (0.0-15.0) % Eos % (Auto) 1.9 (0.0-7.0) % Baso % (Auto) 0.1 (0.0-1.5) % Neut # (Auto) 8.1 H (1.4-5.7) K/uL Lymph # (Auto) 2.1 (0.6-2.4) K/uL [place] # (Auto) 0.8 (0.0-0.8) K/uL Eos # (Auto) 0.2 (0.0-0.7) K/uL Baso # (Auto) 0.0 (0.0-0.1) K/uL Nucleated RBC % 0.0 /100WBC Nucleated RBCs # 0 K/uL Sodium 135 L (136-148) mmol/L Potassium 4.2 (3.5-5.1) mmol/L Chloride 100 (98-107) mmol/L Carbon Dioxide 31.1 (21.0-32.0) mmol/L BUN 10 (7.0-18.0) mg/dL Creatinine 1.5 H (0.8-1.3) mg/dL Est Cr Clr Drug Dosing 80.47 mL/min Estimated GFR (MDRD) 55.7 ml/min Glucose 115 H (74-106) mg/dL Calcium 8.9 (8.5-10.1) mg/dL Total Bilirubin 0.4 (0.2-1.0) mg/dL AST 16 (15-37) IU/L ALT 21 (14-63) IU/L Alkaline Phosphatase 64 (46-116) U/L Total Protein 7.4 (6.4-8.2) g/dL Albumin 3.4 (3.4-5.0) g/dL Globulin 4.0 (2.6-4.0) g/dL Albumin/Globulin Ratio 0.9 (0.9-1.6) Urine Color YELLOW Urine Appearance CLEAR Urine pH 6.0 (5.0-8.0) Ur Specific [place] <= 1.005 (1.001-1.035) Urine Protein NEGATIVE (NEGATIVE) mg/dL Urine Glucose (UA) NEGATIVE (NEGATIVE) mg/dL Urine Ketones NEGATIVE (NEGATIVE) mg/dL Urine Occult Blood NEGATIVE (NEGATIVE) Urine Nitrite NEGATIVE (NEGATIVE) Urine Bilirubin NEGATIVE (NEGATIVE) Urine Urobilinogen 0.2 (<2.0) EU/dL Ur Leukocyte Esterase NEGATIVE (NEGATIVE) Meds: Medications Discontinued Medications Generic Name Dose Route Start Last Admin Trade Name Freq PRN Reason Stop Dose Admin Sodium Chloride 1,000 mls @ 999 mls/hr 04/16/19 14:29 04/16/19 15:15 Normal Saline IV 04/16/19 15:29 999 mls/hr STAT ONE Administration Ketorolac Tromethamine 30 mg 04/16/19 14:29 04/16/19 15:16 Toradol IVPUSH 04/16/19 14:30 30 mg ONETIME ONE Administration Ondansetron HCl 4 mg 04/16/19 14:29 11/17/19 15:16 Zofran IVPUSH 04/16/19 14:30 4 mg ONETIME ONE Administration Departure - Departure Time of Disposition: 16:08 Disposition: Home, Self-Care 01 Condition: Good Clinical Impression: Ureterolithiasis, Renal colic on right side - Discharge Information Referrals: PCP,None [Primary Care Provider] - Forms: ED Department Discharge Additional Instructions: The following information is given to patients seen in the emergency department who are being discharged to home. This information is to outline your options for follow-up care. We provide all patients seen in our emergency department with a follow-up referral. The need for follow-up, as well as the timing and circumstances, are variable depending upon the specifics of your emergency department visit. If you don't have a primary care physician on staff, we will provide you with a referral. We always advise you to contact your personal physician following an emergency department visit to inform them of the circumstance of the visit and for follow-up with them and/or the need for any referrals to a consulting specialist. The emergency department will also refer you to a specialist when appropriate. This referral assures that you have the opportunity for followup care with a specialist. All of these measure are taken in an effort to provide you with optimal care, which includes your followup. Under all circumstances we always encourage you to contact your private physician who remains a resource for coordinating your care. When calling for followup care, please make the office aware that this follow-up is from your recent emergency room visit. If for any reason you are refused follow-up, please contact the [facility] emergency department at and asked to speak to the emergency department charge nurse. Push fluids as discussed follow-up urology as discussed return as needed as discussed
--- NOTE | 2019-04-16 15:32 | CT ---
Indication: Right flank pain. Technique: Multiple contiguous axial images were obtained from the lung bases through the symphysis pubis without intravenous contrast enhancement. Please note that all CT scans at this facility use dose modulation, iterative reconstruction, and/or weight-based dosing when appropriate to reduce radiation dose to as low as reasonably achievable. Comparison: April 14, 2019. Findings: The lung bases are clear. No infiltrate, pleural effusion, or pneumothorax is identified. Heart is normal in size. The unenhanced liver, gallbladder, pancreas, and adrenal glands are normal. No intrahepatic biliary ductal dilatation is identified. No left-sided hydronephrosis is identified. Right-sided hydronephrosis and right-sided hydroureter identified. A 4 mm calculus is identified at the ureterovesicular junction. This has significantly progressed. The amount of hydronephrosis has also slightly increased since the previous exam. Multiple other bilateral renal calculi are identified, nonobstructing. In the pelvis, the urinary bladder is normal. The prostate gland is normal. The small and large bowel are normal in caliber. No free air or free fluid is identified within the abdomen or pelvis. The aorta is normal in caliber. Degenerative changes of the spine are identified, unchanged. Impression: 4 millimeter calculus identified at the right ureterovesicular junction. On the previous exam, this stone was located in the mid ureter. Bilateral non obstructing renal calculi. Degenerative changes of the lumbar spine Please note that all CT scans at this facility use dose modulation, iterative reconstruction, and/or weight-based dosing when appropriate to reduce radiation dose to as low as reasonably achievable. Dictated by Leighann Larose MD @ Apr 16 2019 3:25PM Signed by Dr. Leighann Larose @ Apr 16 2019 3:29PM
[2019-04-16 15:40] LABS: CARBON DIOXIDE,CO2 31.1 mmol/L (21.0-32.0); POTASSIUM,K 4.2 mmol/L (3.5-5.1)
== END 2019-04-16 16:20 | disposition home or self-care (01) ==
LOC: MW.ED 14:07
DX: N20.2 Calculus of kidney with calculus of ureter (principal); F41.9 Anxiety disorder, unspecified; E66.9 Obesity, unspecified; Z91.040 Latex allergy status; Z88.5 Allergy status to narcotic agent; Z88.8 Allergy status to other drugs, medicaments and biological substances; Z91.048 Other nonmedicinal substance allergy status; Z68.29 Body mass index [BMI] 29.0-29.9, adult
CPT/HCPCS: 36415; 74176; 80053; 81003; 85025; 96361; 96374; 96375; 99284; J1885; J2405; J7040; J7030

== ENCOUNTER 2019-04-18 10:23 | Emergency (ER) | payer MEDICAID ==
[2019-04-18] MEDS ORDERED: Sodium Chloride 0.9% 1,000 ML IV ONE (10:34)
[2019-04-18] MEDS ORDERED: Ketorolac 30 MG/ML SDV IVPUSH ONE (10:59)
[2019-04-18] MEDS ORDERED: Ondansetron 4 MG/2 ML SDV IVPUSH ONE ×2 (10:59→12:07)
[2019-04-18 11:11] LABS: CARBON DIOXIDE,CO2 28.6 mmol/L (21.0-32.0); POTASSIUM,K 4.9 mmol/L (3.5-5.1)
--- NOTE | 2019-04-18 11:35 | EDM.PDOC ---
ED HPI GENERAL MEDICAL PROBLEM - General Chief Complaint: Flank Pain Stated Complaint: KIDNEY STONES Time Seen by Provider: 04/18/19 10:30 Source of Information: Reports: Patient History Limitations: Reports: No Limitations - History of Present Illness INITIAL COMMENTS - FREE TEXT/NARRATIVE: HISTORY AND PHYSICAL: History of present illness: Patient is a 29-year-old male presents to the ED today with concern of right flank pain that has been ongoing for the past several days. Patient was seen in the ED on 04/14/19 and diagnosed with a ureterolithiasis of the right. Patient then return to the ED on 04/16/19 and had repeat lab work and imaging which still showed the 4 mm stone in the UVJ junction. Return to the ED today stating he is out of his pain medications and Flomax and has been vomiting since this morning. Patient states he did call Dr. Leavitt's office to set up an appointment time but he is out of 3 weeks so did not establish an appointment time with him and was instructed to call [place]. Patient states he has not called to set up an appointment with urology in [place]. Patient denies fever, chills, chest pain, shortness of breath, or cough. Denies headache, neck stiff ness, change in vision, syncope, or near syncope. Denies nausea, vomiting, abdominal pain, diarrhea, constipation, or dysuria. Has not noted any blood in urine or stool. Patient has been eating and drinking appropriately. Review of systems: As per history of present illness and below otherwise all systems reviewed and negative. Past medical history: As per history of present illness and as reviewed below otherwise noncontributory. Surgical history: As per history of present illness and as reviewed below otherwise noncontributory. Social history: See social history for further information Family history: As per history of present illness and as reviewed below otherwise noncontributory. Physical exam: General: Patient is alert, oriented, and in no acute distress. Patient laying on exam table and appears to be in mild pain. HEENT: Atraumatic, normocephalic, pupils equal and reactive bilaterally, negative for conjunctival pallor or scleral icterus, mucous membranes moist, TMs normal bilaterally, throat clear, neck supple, nontender, trachea midline. No drooling or trismus noted. No meningeal signs. No hot potato voice noted. Lungs: Clear to auscultation, breath sounds equal bilaterally, chest nontender. Heart: S1S2, regular rate and rhythm without overt murmur Abdomen: Soft, nondistended, nontender. Negative for masses or hepatosplenomegaly. Positive for costovertebral tenderness of the right. Pelvis: Stable nontender. Genitourinary: Deferred. Rectal: Deferred. Skin: Intact, warm, dry. No lesions or rashes noted. Extremities: Atraumatic, negative for cords or calf pain. Neurovascular unremarkable. Neuro: Awake, alert, oriented. Cranial nerves II through XII unremarkable. Cerebellum unremarkable. Motor and sensory unremarkable throughout. Exam nonfocal. Notes: Dr. Jenkins verbally involved in patient care. He does periodically vomit throughout stay in ED. Able to tolerate PO intake after therapeutics today. I did call and speak to Dr. Reece, urology on-call for [place] in [place]. Dr. Reece states to give him some Flomax and some pain medication and to have patient call his clinic after discharge and he can see him tomorrow in the clinic. Voices understanding and is agreeable to plan of care. Denies any further questions or concerns at this time. Diagnostics: CBC, CMP, UA, abdominal pelvic CT, lipase Therapeutics: Saline, Toradol, Zofran, Morphine Prescription: Zofran, Flomax, [place] #10 Impression: Ureterolithiasis Plan: 1. Take medication as prescribed. You can also use Tylenol and ibuprofen as directed for pain and discomfort. 2. Follow-up with the urologist, Dr. Reece as discussed. Call to set up an appointment time following discharge from the ER. 3. Return to the ED as needed and as discussed. Definitive disposition and diagnosis as appropriate pending reevaluation and review of above. flank Pain Score (Numeric/FACES): 10 - Related Data Allergies Allergy/AdvReac Type Severity Reaction Status Date / Time adhesive tape Allergy Blisters Verified 04/18/19 10:33 codeine Allergy Cannot Verified 04/18/19 10:33 Remember diphenhydramine HCl Allergy Cannot Verified 04/18/19 10:33 [From Benadryl] Remember latex Allergy Blisters Verified 04/18/19 10:33 Home Meds: Home Meds Adalimumab [Humira] 40 mg SQ ASDIRECTED 04/08/17 [History] ALPRAZolam [Xanax] 2 mg PO TID 02/12/19 [History] Dextroamphetamine/Amphetamine [Adderall 20 mg Tablet] 20 mg PO DAILY 03/13/19 [ History] Past Medical History - Past Health History Medical/Surgical History: Denies Medical/Surgical History HEENT History: Reports: None Cardiovascular History: Reports: None Respiratory History: Reports: None Gastrointestinal History: Reports: GERD Genitourinary History: Reports: Renal Calculus Musculoskeletal History: Reports: Fracture Other Musculoskeletal History: hx of fx right arm and both feet Neurological History: Reports: Concussion, Other (See Below) Other Neuro History: hx of motion sickness Psychiatric History: Reports: ADHD, Anxiety Endocrine/Metabolic History: Reports: Obesity/BMI 30+ 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 Hematologic History: Reports: None Immunologic History: Reports: None Oncologic (Cancer) History: Reports: None Dermatologic History: Reports: Psoriasis Other Dermatologic History: taking [facility] - Infectious Disease History Infectious Disease History: Reports: None - Past Surgical History Head Surgeries/Procedures: Reports: None HEENT Surgical History: Reports: Tonsillectomy Cardiovascular Surgical History: Reports: None Respiratory Surgical History: Reports: None GI Surgical History: Reports: EGD Endocrine Surgical History: Reports: None Neurological Surgical History: Reports: None Musculoskeletal Surgical History: Reports: None Oncologic Surgical History: Reports: None Dermatological Surgical History: Reports: None Social & Family History - Family History Family Medical History: Noncontributory - Tobacco Use Smoking Status *Q: Never Smoker Second Hand Smoke Exposure: No - Caffeine Use Caffeine Use: Reports: Soda Other Caffeine Use: 2 cans daily - Recreational Drug Use Recreational Drug Use: No ED ROS GENERAL - Review of Systems Review Of Systems: Comprehensive ROS is negative, except as noted in HPI. ED EXAM, GENERAL - Physical Exam Exam: See Below (See dictation) Course - Vital Signs Last Recorded V/S: Last Vital Signs Temp 96.4 F 04/18/19 10:29 Pulse 69 04/18/19 12:26 Resp 15 04/18/19 12:26 BP 152/93 H 04/18/19 12:26 Pulse Ox 96 04/18/19 12:26 - Orders/Labs/Meds Orders: Active Orders 24 hr Category Date Time Status Sodium Chloride 0.9% [Normal Saline] 1,000 ml Med 04/18/19 12:15 Active IV ASDIRECTED Medication Orders Sodium Chloride (Normal Saline) 1,000 mls @ 125 mls/hr IV ASDIRECTED [place] Last Admin: 04/18/19 12:17 Dose: 125 mls/hr Labs: Laboratory Tests 04/18/19 04/18/19 04/18/19 Range/Units 10:40 10:40 10:50 WBC 11.93 H (4.0-11.0) K/uL RBC 5.55 (4.50-5.90) M/uL Hgb 16.4 (13.0-17.0) g/dL Hct 47.8 (38.0-50.0) % MCV 86.1 (80.0-98.0) fL MCH 29.5 (27.0-32.0) pg MCHC 34.3 (31.0-37.0) g/dL RDW Std Deviation 38.6 (28.0-62.0) fl RDW Coeff of Nicolle 12 (11.0-15.0) % Plt Count 216 (150-400) K/uL MPV 9.50 (7.40-12.00) fL Neut % (Auto) 73.9 (48.0-80.0) % Lymph % (Auto) 16.8 (16.0-40.0) % [place] % (Auto) 7.2 (0.0-15.0) % Eos % (Auto) 1.9 (0.0-7.0) % Baso % (Auto) 0.2 (0.0-1.5) % Neut # (Auto) 8.8 H (1.4-5.7) K/uL Lymph # (Auto) 2.0 (0.6-2.4) K/uL [place] # (Auto) 0.9 H (0.0-0.8) K/uL Eos # (Auto) 0.2 (0.0-0.7) K/uL Baso # (Auto) 0.0 (0.0-0.1) K/uL Nucleated RBC % 0.0 /100WBC Nucleated RBCs # 0 K/uL Sodium 138 (136-148) mmol/L Potassium 4.9 (3.5-5.1) mmol/L Chloride 102 (98-107) mmol/L Carbon Dioxide 28.6 (21.0-32.0) mmol/L BUN 11 (7.0-18.0) mg/dL Creatinine 1.5 H (0.8-1.3) mg/dL Est Cr Clr Drug Dosing 79.76 mL/min Estimated GFR (MDRD) 55.3 ml/min Glucose 96 (74-106) mg/dL Calcium 9.6 (8.5-10.1) mg/dL Total Bilirubin 0.3 (0.2-1.0) mg/dL AST 17 (15-37) IU/L ALT 24 (14-63) IU/L Alkaline Phosphatase 65 (46-116) U/L Total Protein 8.3 H (6.4-8.2) g/dL Albumin 3.7 (3.4-5.0) g/dL Globulin 4.6 H (2.6-4.0) g/dL Albumin/Globulin Ratio 0.8 L (0.9-1.6) Lipase 210 (73-393) U/L Urine Color DARK YELLOW Urine Appearance CLEAR Urine pH 6.0 (5.0-8.0) Ur Specific [place] 1.025 (1.001-1.035) Urine Protein NEGATIVE (NEGATIVE) mg/dL Urine Glucose (UA) NEGATIVE (NEGATIVE) mg/dL Urine Ketones NEGATIVE (NEGATIVE) mg/dL Urine Occult Blood NEGATIVE (NEGATIVE) Urine Nitrite NEGATIVE (NEGATIVE) Urine Bilirubin NEGATIVE (NEGATIVE) Urine Urobilinogen 0.2 (<2.0) EU/dL Ur Leukocyte Esterase NEGATIVE (NEGATIVE) Meds: Medications Generic Name Dose Route Start Last Admin Trade Name Freq PRN Reason Stop Dose Admin Sodium Chloride 1,000 mls @ 125 mls/hr 04/18/19 12:15 04/18/19 12:17 Normal Saline IV 125 mls/hr ASDIRECTED [place] Administration Discontinued Medications Generic Name Dose Route Start Last Admin Trade Name Freq PRN Reason Stop Dose Admin Sodium Chloride 1,000 mls @ 999 mls/hr 04/18/19 10:34 04/18/19 10:45 Normal Saline IV 04/18/19 11:34 999 mls/hr BOLUS ONE Administration Ketorolac Tromethamine 30 mg 04/18/19 10:59 04/18/19 11:07 Toradol IVPUSH 04/18/19 11:00 30 mg ONETIME ONE Administration Morphine Sulfate 2 mg 04/18/19 12:07 04/18/19 12:17 Morphine IVPUSH 04/18/19 12:08 2 mg ONETIME ONE Administration Ondansetron HCl 4 mg 04/18/19 10:59 04/18/19 11:07 Zofran IVPUSH 04/18/19 11:00 4 mg ONETIME ONE Administration Ondansetron HCl 4 mg 04/18/19 12:07 04/18/19 12:17 Zofran IVPUSH 04/18/19 12:08 4 mg ONETIME ONE Administration Departure - Departure Time of Disposition: 12:38 Disposition: Home, Self-Care 01 Clinical Impression: Ureterolithiasis - Discharge Information Referrals: Roderick Rubi MD [Primary Care Provider] - Forms: ED Department Discharge Additional Instructions: The following information is given to patients seen in the emergency department who are being discharged to home. This information is to outline your options for follow-up care. We provide all patients seen in our emergency department with a follow-up referral. The need for follow-up, as well as the timing and circumstances, are variable depending upon the specifics of your emergency department visit. If you don't have a primary care physician on staff, we will provide you with a referral. We always advise you to contact your personal physician following an emergency department visit to inform them of the circumstance of the visit and for follow-up with them and/or the need for any referrals to a consulting specialist. The emergency department will also refer you to a specialist when appropriate. This referral assures that you have the opportunity for follow-up care with a specialist. All of these measure are taken in an effort to provide you with optimal care, which includes your follow-up. Under all circumstances we always encourage you to contact your private physician who remains a resource for coordinating your care. When calling for follow-up care, please make the office aware that this follow-up is from your recent emergency room visit. If for any reason you are refused follow-up, please contact the [facility] Emergency Department at and asked to speak to the emergency department charge nurse. [facility] [address] [place] [id number] [facility] [address] [place] [address] [facility], Dr. Reece [address] [place] [address] [place] [address], 5th floor 1. Take medication as prescribed. You can also use Tylenol and ibuprofen as directed for pain and discomfort. 2. Follow-up with the urologist, Dr. Reece as discussed. Call to set up an appointment time following discharge from the ER. 3. Return to the ED as needed and as discussed. - My Orders Last 24 Hours: My Active Orders 04/18/19 12:15 Sodium Chloride 0.9% [Normal Saline] 1,000 ml IV ASDIRECTED - Assessment/Plan Last 24 Hours: My Active Orders 04/18/19 12:15 Sodium Chloride 0.9% [Normal Saline] 1,000 ml IV ASDIRECTED
--- NOTE | 2019-04-18 11:55 | CT ---
EXAM DATE: 04/18/19 PATIENT'S AGE: 29 CT abdomen and pelvis Technique: Multiple axial sections were obtained from above the dome of the diaphragm inferiorly through the pubic symphysis. Intravenous and oral contrast not utilized. Study performed as ureteral stone protocol. Findings: Multiple small nonobstructing calculi are seen within both kidneys. Right ureter is prominent in size which is caused by an obstructing stone within the distal right ureter at the UVJ measuring about 4 mm in size. No other abnormal calcifications are seen along the course of the ureters. Other findings: Calcified lymph nodes are seen within the right hilar region. Visualized lung bases show nothing acute. Noncontrast appearance of the liver and spleen appears within normal limits. Adrenal glands show no nodule. Pancreas shows no discrete abnormality. Gallbladder contains no calcified gallstones. Aorta shows no aneurysm. No retroperitoneal adenopathy or mesenteric abnormalities are seen. No pelvic mass or adenopathy is seen. Increased stool noted throughout the colon. Bone window settings shows no acute osseous finding. 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 L5 vertebral body shows slight anterior spondylolisthesis. Disc space narrowing is noted L5-S1 with vacuum phenomena. Impression: 1. Multiple small nonobstructing calculi within both kidneys. 2. Right ureteral dilatation caused by an obstructing stone within the distal right ureter measuring 4 mm. 3. Mild increased stool throughout the colon. 4. Other findings believed to be incidental as noted above. Diagnostic code #3 Report Signed by Proxy. [facility] NURSING FACILITYJessica
[2019-04-18] MEDS ORDERED: Morphine 2 MG/ML Syringe IVPUSH ONE (12:07)
[2019-04-18] MEDS ORDERED: Sodium Chloride 0.9% 1,000 ML IV SCH (12:15)
[2019-04-18 12:27] VITALS: BP 152/93; PULSE 69
== END 2019-04-18 13:40 | disposition home or self-care (01) ==
LOC: MW.ED 10:23
DX: N20.1 Calculus of ureter (principal); F41.9 Anxiety disorder, unspecified; F90.9 Attention-deficit hyperactivity disorder, unspecified type; E66.9 Obesity, unspecified; Z68.29 Body mass index [BMI] 29.0-29.9, adult; Z91.040 Latex allergy status; Z88.5 Allergy status to narcotic agent; Z88.8 Allergy status to other drugs, medicaments and biological substances; Z91.048 Other nonmedicinal substance allergy status; Z79.899 Other long term (current) drug therapy; Z87.442 Personal history of urinary calculi
CPT/HCPCS: 36415; 74176; 80053; 81003; 83690; 85025; 96361; 96374; 96375; 96376; 99284; J1885; J2270; J2405; J7040

== ENCOUNTER 2019-07-10 07:36 | Emergency (ER) | payer MEDICAID ==
--- NOTE | 2019-07-10 07:54 | EDM.PDOC ---
ED HPI GENERAL MEDICAL PROBLEM - General Chief Complaint: Genitourinary Problem Stated Complaint: KIDNEY STONES Time Seen by Provider: 07/10/19 07:53 Source of Information: Reports: Patient History Limitations: Reports: No Limitations - History of Present Illness INITIAL COMMENTS - FREE TEXT/NARRATIVE: Patient is a 29-year-old male is complaining having right flank pain that radiates to his groin which started about 5:00 this morning after he was drinking a glass of milk. Patient has had similar symptoms in the past has long history of kidney stones. Patient says that none of his stones have been large enough that he needs lithotripsy and they all passed on their own. He denies any hematuria or dysuria. He denies any fever or shaking chills. He denies any bloody or tarry stools. Patient has taken Tylenol for his current pain symptoms which he rates as 10 out of 10 pain. He was asymptomatic before onset of his pain. Onset: Today, Sudden Duration: Constant, Getting Worse Location: Reports: Abdomen, Back, Pelvis (All symptoms right-sided.) Quality: Reports: Ache, Throbbing Severity: Severe Improves with: Reports: None Worsens with: Reports: None Associated Symptoms: Reports: Diaphoresis, Nausea/Vomiting Treatments WELDER/INSTALLER: Reports: Acetaminophen right flank Pain Score (Numeric/FACES): 9 - Related Data Allergies Allergy/AdvReac Type Severity Reaction Status Date / Time adhesive tape Allergy Blisters Verified 07/10/19 07:53 codeine Allergy Cannot Verified 07/10/19 07:53 Remember diphenhydramine HCl Allergy Cannot Verified 07/10/19 07:53 [From Benadryl] Remember latex Allergy Blisters Verified 07/10/19 07:53 Home Meds: Home Meds Adalimumab [Humira] 40 mg SQ ASDIRECTED 09/05/16 [History] buPROPion [Wellbutrin] 150 mg PO DAILY 07/10/19 [History] Past Medical History - Past Health History Medical/Surgical History: Denies Medical/Surgical History HEENT History: Reports: None Cardiovascular History: Reports: None Respiratory History: Reports: None Gastrointestinal History: Reports: GERD Genitourinary History: Reports: Renal Calculus Musculoskeletal History: Reports: Fracture Other Musculoskeletal History: hx of fx right arm and both feet Neurological History: Reports: Concussion, Other (See Below) Other Neuro History: hx of motion sickness Psychiatric History: Reports: ADHD, Anxiety Endocrine/Metabolic History: Reports: Obesity/BMI 30+ 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 Hematologic History: Reports: None Immunologic History: Reports: None Oncologic (Cancer) History: Reports: None Dermatologic History: Reports: Psoriasis Other Dermatologic History: taking [facility] - Infectious Disease History Infectious Disease History: Reports: None - Past Surgical History Head Surgeries/Procedures: Reports: None HEENT Surgical History: Reports: Tonsillectomy Cardiovascular Surgical History: Reports: None Respiratory Surgical History: Reports: None GI Surgical History: Reports: EGD Endocrine Surgical History: Reports: None Neurological Surgical History: Reports: None Musculoskeletal Surgical History: Reports: None Oncologic Surgical History: Reports: None Dermatological Surgical History: Reports: None Social & Family History - Family History Family Medical History: Noncontributory - Caffeine Use Caffeine Use: Reports: Soda Other Caffeine Use: 2 cans daily ED ROS GENERAL - Review of Systems Review Of Systems: Comprehensive ROS is negative, except as noted in HPI. ED EXAM, RENAL/ - Physical Exam Exam: See Below Text/Narrative:: Exam: See Below Exam Limited By: No Limitations Head: Atraumatic Neck: Normal Inspection. No: Carotid Bruit, Lymphadenopathy (R) Respiratory/Chest: No Respiratory Distress, Lungs Clear, Normal Breath Sounds, No Accessory Muscle Use. No: Chest Non-Tender Cardiovascular: Normal Peripheral Pulses, Regular Rate, Rhythm, No Edema, No JVD GI/Abdominal: Normal Bowel Sounds, Tender. No: Non-Tender, Splenomegaly Back Exam: Normal Inspection. No: CVA Tenderness (R) Extremities: Normal Inspection. No: No Pedal Edema Neurological: Alert, Oriented, Normal Cognition Psychiatric: Normal Affect Skin Exam: Warm Lymphatic: No Adenopathy Course - Vital Signs Text/Narrative:: Patient's pain has resolved with IV fluids and meds. Urine shows large amount of blood but no sign of infection. His other labs are within normal limits. I have not gotten a CAT scan on him since we have relief of his pain and he does follow-up with a urologist. He will need to return to emergency department if having fever or shaking chills, vomiting or feeling worse. Last Recorded V/S: Last Vital Signs Temp 35.9 C 07/10/19 07:55 Pulse 87 07/10/19 09:30 Resp 17 07/10/19 09:30 BP 132/70 07/10/19 09:30 Pulse Ox 97 07/10/19 09:30 - Orders/Labs/Meds Labs: Laboratory Tests 07/10/19 07/10/19 07/10/19 Range/Units 07:58 08:20 08:20 WBC 8.85 (4.0-11.0) K/uL RBC 5.27 (4.50-5.90) M/uL Hgb 15.4 (13.0-17.0) g/dL Hct 44.2 (38.0-50.0) % MCV 83.9 (80.0-98.0) fL MCH 29.2 (27.0-32.0) pg MCHC 34.8 (31.0-37.0) g/dL RDW Std Deviation 38.6 (28.0-62.0) fl RDW Coeff of Nicolle 13 (11.0-15.0) % Plt Count 223 (150-400) K/uL MPV 9.70 (7.40-12.00) fL Neut % (Auto) 52.1 (48.0-80.0) % Lymph % (Auto) 37.5 (16.0-40.0) % [place] % (Auto) 7.5 (0.0-15.0) % Eos % (Auto) 2.6 (0.0-7.0) % Baso % (Auto) 0.3 (0.0-1.5) % Neut # (Auto) 4.6 (1.4-5.7) K/uL Lymph # (Auto) 3.3 H (0.6-2.4) K/uL [place] # (Auto) 0.7 (0.0-0.8) K/uL Eos # (Auto) 0.2 (0.0-0.7) K/uL Baso # (Auto) 0.0 (0.0-0.1) K/uL Nucleated RBC % 0.0 /100WBC Nucleated RBCs # 0 K/uL Sodium 138 (136-148) mmol/L Potassium 4.5 (3.5-5.1) mmol/L Chloride 104 (98-107) mmol/L Carbon Dioxide 26.6 (21.0-32.0) mmol/L BUN 14 (7.0-18.0) mg/dL Creatinine 1.0 (0.8-1.3) mg/dL Est Cr Clr Drug Dosing 119.63 mL/min Estimated GFR (MDRD) > 60.0 ml/min Glucose 86 (74-106) mg/dL Calcium 9.3 (8.5-10.1) mg/dL Total Bilirubin 0.2 (0.2-1.0) mg/dL AST 18 (15-37) IU/L ALT 31 (14-63) IU/L Alkaline Phosphatase 55 (46-116) U/L Total Protein 8.0 (6.4-8.2) g/dL Albumin 3.9 (3.4-5.0) g/dL Globulin 4.1 H (2.6-4.0) g/dL Albumin/Globulin Ratio 1.0 (0.9-1.6) Urine Color YELLOW Urine Appearance SLT CLOUDY Urine pH 5.5 (5.0-8.0) Ur Specific [place] >= 1.030 (1.001-1.035) Urine Protein 30 H (NEGATIVE) mg/dL Urine Glucose (UA) NEGATIVE (NEGATIVE) mg/dL Urine Ketones NEGATIVE (NEGATIVE) mg/dL Urine Occult Blood LARGE H (NEGATIVE) Urine Nitrite NEGATIVE (NEGATIVE) Urine Bilirubin NEGATIVE (NEGATIVE) Urine Urobilinogen 0.2 (<2.0) EU/dL Ur Leukocyte Esterase NEGATIVE (NEGATIVE) Urine RBC 80-90 (0-2/HPF) Urine WBC 0-2 (0-5/HPF) Ur Epithelial Cells RARE (NONE-FEW) Urine Bacteria RARE (NEGATIVE) Meds: Medications Discontinued Medications Generic Name Dose Route Start Last Admin Trade Name Freq PRN Reason Stop Dose Admin Hydromorphone HCl 1 mg 07/10/19 07:59 07/10/19 08:25 Dilaudid IVPUSH 07/10/19 08:00 1 mg ONETIME ONE Administration Sodium Chloride 1,000 mls @ 999 mls/hr 07/10/19 07:57 07/10/19 08:24 Normal Saline IV 07/10/19 08:57 999 mls/hr .BOLUS ONE Administration Ketorolac Tromethamine 30 mg 07/10/19 07:58 07/10/19 08:24 Toradol IVPUSH 07/10/19 07:59 30 mg ONETIME ONE Administration Ondansetron HCl 4 mg 07/10/19 07:57 07/10/19 08:24 Zofran IVPUSH 07/10/19 07:58 4 mg ONETIME ONE Administration Departure - Departure Time of Disposition: 09:38 Disposition: Home, Self-Care 01 Condition: Good Clinical Impression: Renal colic on right side - Discharge Information Instructions: Renal Colic, [id number] Referrals: Roderick Rubi MD [Primary Care Provider] - Forms: ED Department Discharge Additional Instructions: Increase fluids to keep urine clear for the next 3 weeks. Follow-up with your urologist if symptoms continue and for recheck. Tylenol and ibuprofen as needed. Return to ER if having fever or shaking chills, vomiting or worse pain. Percocet and Phenergan as prescribed. Flomax. Care Plan Goals: The following information is given to patients seen in the emergency department who are being discharged to home. This information is to outline your options for follow-up care. We provide all patients seen in our emergency department with a follow-up referral. The need for follow-up, as well as the timing and circumstances, are variable depending upon the specifics of your emergency department visit. If you don't have a primary care physician on staff, we will provide you with a referral. We always advise you to contact your personal physician following an emergency department visit to inform them of the circumstance of the visit and for follow-up with them and/or the need for any referrals to a consulting specialist. The emergency department will also refer you to a specialist when appropriate. This referral assures that you have the opportunity for follow-up care with a specialist. All of these measure are taken in an effort to provide you with optimal care, which includes your follow-up. Under all circumstances we always encourage you to contact your private physician who remains a resource for coordinating your care. When calling for follow-up care, please make the office aware that this follow-up is from your recent emergency room visit. If for any reason you are refused follow-up, please contact the [facility] Emergency Department at and asked to speak to the emergency department charge nurse. Sepsis Event Note - Focused Exam Vital Signs: Vital Signs Temp Pulse Resp BP Pulse Ox 07/10/19 09:30 87 17 132/70 97 07/10/19 07:55 35.9 C 104 H 18 133/84 98 Date Exam was Performed: 07/10/19 Time Exam was Performed: 09:36
[2019-07-10] MEDS ORDERED: Sodium Chloride 0.9% 1,000 ML IV ONE (07:57)
[2019-07-10] MEDS ORDERED: Ondansetron 4 MG/2 ML SDV IVPUSH ONE (07:57)
[2019-07-10] MEDS ORDERED: Ketorolac 30 MG/ML SDV IVPUSH ONE (07:58)
[2019-07-10] MEDS ORDERED: HYDROmorphone 2 MG/ML Syringe IVPUSH ONE (07:59)
[2019-07-10 08:59] LABS: BLOOD UREA NITROGEN,BUN 14 mg/dL (7.0-18.0); CARBON DIOXIDE,CO2 26.6 mmol/L (21.0-32.0); CHLORIDE,CL 104 mmol/L (98-107); GLUCOSE RANDOM 86 mg/dL (74-106); POTASSIUM,K 4.5 mmol/L (3.5-5.1); SODIUM,NA 138 mmol/L (136-148)
[2019-07-10 09:30] VITALS: BP 132/70; PULSE 87
== END 2019-07-10 09:53 | disposition home or self-care (01) ==
LOC: MW.ED 07:36
DX: N23 Unspecified renal colic (principal); F41.9 Anxiety disorder, unspecified; E66.9 Obesity, unspecified; Z68.29 Body mass index [BMI] 29.0-29.9, adult; Z88.5 Allergy status to narcotic agent; Z91.048 Other nonmedicinal substance allergy status; Z88.8 Allergy status to other drugs, medicaments and biological substances; Z91.040 Latex allergy status; Z79.899 Other long term (current) drug therapy
CPT/HCPCS: 80053; 81001; 85025; 96361; 96374; 96375; 99284; J1170; J1885; J2405; J7030; 99283

== ENCOUNTER 2019-07-11 17:16 | Emergency (ER) | payer MEDICAID ==
--- NOTE | 2019-07-11 17:49 | EDM.PDOC ---
ED HPI GENERAL MEDICAL PROBLEM - General Chief Complaint: General Stated Complaint: MEDICAL CLEARANCE Time Seen by Provider: 07/11/19 17:45 Source of Information: Reports: Patient History Limitations: Reports: No Limitations - History of Present Illness INITIAL COMMENTS - FREE TEXT/NARRATIVE: HISTORY AND PHYSICAL: History of present illness: Patient is a 29-year-old male presents to the ED for medical clearance. Officer states the half-way nurse wanted him evaluated due to his "stomach ulcers." Patient states he has a history of ulcerative colitis and is on humira biweekly. He states he is not having any abdominal pain or bloody stools. He was seen in the ED yesterday for kidney stones. He states he is having flank pain secondary to this. He reports he did not get a script for flomax and is requesting this at this time. He denies fevers or chills. Review of systems: As per history of present illness and below otherwise all systems reviewed and negative. Past medical history: As per history of present illness and as reviewed below otherwise noncontributory. Surgical history: As per history of present illness and as reviewed below otherwise noncontributory. Social history: No reported history of drug or alcohol abuse. Family history: As per history of present illness and as reviewed below otherwise noncontributory. Physical exam: General: Patient sitting comfortably in no acute distress and nontoxic appearing HEENT: Atraumatic, normocephalic, pupils reactive, negative for conjunctival pallor or scleral icterus, mucous membranes moist, throat clear, neck supple, nontender, trachea midline. No meningeal signs. Lungs: Clear to auscultation, breath sounds equal bilaterally, chest nontender. Heart: S1S2, regular, negative for clicks, rubs, or overt murmur. Abdomen: Soft, nondistended, nontender. Negative for masses or hepatosplenomegaly. Negative for costovertebral tenderness. No rigidity, rebound , guarding. Pelvis: Stable nontender. Genitourinary: Deferred. Rectal: Deferred. Extremities: Atraumatic, negative for cords or calf pain. Neurovascular unremarkable. Neuro: Awake, alert, oriented. Cranial nerves II through XII unremarkable. Cerebellum unremarkable. Motor and sensory unremarkable throughout. Exam nonfocal. Notes: Diagnostics: none Therapeutics: none Prescriptions: Flomax Impression: history of kidney stones, medical clearance for incarceration Plan: Take flomax as instructed Follow up with primary care provider and urology Return to ED as needed as discussed Definitive disposition and diagnosis as appropriate pending reevaluation and review of above. RLQ Pain Score (Numeric/FACES): 6 - Related Data Allergies Allergy/AdvReac Type Severity Reaction Status Date / Time adhesive tape Allergy Blisters Verified 07/11/19 17:24 codeine Allergy Cannot Verified 07/11/19 17:24 Remember diphenhydramine HCl Allergy Cannot Verified 07/11/19 17:24 [From Benadryl] Remember latex Allergy Blisters Verified 07/11/19 17:24 Home Meds: Home Meds Adalimumab [Humira] 40 mg SQ ASDIRECTED 09/05/16 [History] Promethazine [Phenergan] 25 mg PO Q6H PRN #10 tab 07/10/19 [Rx] buPROPion [Wellbutrin] 150 mg PO DAILY 07/10/19 [History] oxyCODONE HCl/Acetaminophen [Percocet 5-325 mg Tablet] 1 each PO QID PRN #20 tablet 07/10/19 [Rx] QUEtiapine [SEROquel] 300 mg PO BEDTIME 07/11/19 [History] Past Medical History - Past Health History Medical/Surgical History: Denies Medical/Surgical History HEENT History: Reports: None Cardiovascular History: Reports: None Respiratory History: Reports: None Gastrointestinal History: Reports: GERD Genitourinary History: Reports: Renal Calculus Musculoskeletal History: Reports: Fracture Other Musculoskeletal History: hx of fx right arm and both feet Neurological History: Reports: Concussion, Other (See Below) Other Neuro History: hx of motion sickness Psychiatric History: Reports: ADHD, Anxiety Endocrine/Metabolic History: Reports: Obesity/BMI 30+ 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 Hematologic History: Reports: None Immunologic History: Reports: None Oncologic (Cancer) History: Reports: None Dermatologic History: Reports: Psoriasis Other Dermatologic History: taking [facility] - Infectious Disease History Infectious Disease History: Reports: None - Past Surgical History Head Surgeries/Procedures: Reports: None HEENT Surgical History: Reports: Tonsillectomy Cardiovascular Surgical History: Reports: None Respiratory Surgical History: Reports: None GI Surgical History: Reports: EGD Endocrine Surgical History: Reports: None Neurological Surgical History: Reports: None Musculoskeletal Surgical History: Reports: None Oncologic Surgical History: Reports: None Dermatological Surgical History: Reports: None Social & Family History - Family History Family Medical History: Noncontributory - Tobacco Use Smoking Status *Q: Never Smoker - Caffeine Use Caffeine Use: Reports: Soda Other Caffeine Use: 2 cans daily - Recreational Drug Use Recreational Drug Use: No ED ROS GENERAL - Review of Systems Review Of Systems: Comprehensive ROS is negative, except as noted in HPI. ED EXAM, GENERAL - Physical Exam Exam: See Below (see dictation) Course - Vital Signs Last Recorded V/S: Last Vital Signs Temp 97.5 F 07/11/19 17: Pulse 80 07/11/19 17: Resp 18 07/11/19 17: BP 146/110 H 07/11/19 17: Pulse Ox 95 07/11/19 17: Departure - Departure Time of Disposition: 17:54 Disposition: Home, Self-Care 01 Condition: Good Clinical Impression: Medical clearance for incarceration, History of kidney stones - Discharge Information Referrals: Roderick Rubi MD [Primary Care Provider] - Forms: ED Department Discharge Additional Instructions: The following information is given to patients seen in the emergency department who are being discharged to home. This information is to outline your options for follow-up care. We provide all patients seen in our emergency department with a follow-up referral. The need for follow-up, as well as the timing and circumstances, are variable depending upon the specifics of your emergency department visit. If you don't have a primary care physician on staff, we will provide you with a referral. We always advise you to contact your personal physician following an emergency department visit to inform them of the circumstance of the visit and for follow-up with them and/or the need for any referrals to a consulting specialist. The emergency department will also refer you to a specialist when appropriate. This referral assures that you have the opportunity for follow-up care with a specialist. All of these measure are taken in an effort to provide you with optimal care, which includes your follow-up. Under all circumstances we always encourage you to contact your private physician who remains a resource for coordinating your care. When calling for follow-up care, please make the office aware that this follow-up is from your recent emergency room visit. If for any reason you are refused follow-up, please contact the [facility] Emergency Department at and asked to speak to the emergency department charge nurse. [facility] [address] [place] [address] [address] Take flomax as instructed Follow up with primary care provider and urology Return to ED as needed as discussed Sepsis Event Note - Evaluation Sepsis Screening Result: No Definite Risk - Focused Exam Vital Signs: Vital Signs Temp Pulse Resp BP Pulse Ox 07/11/19 17:21 97.5 F 80 18 146/110 H 95 Date Exam was Performed: 07/11/19 Time Exam was Performed: 17:51
[2019-07-11 18:03] VITALS: BP 147/97; PULSE 65
== END 2019-07-11 18:00 | disposition home or self-care (01) ==
LOC: MW.ED 17:16
DX: Z02.89 Encounter for other administrative examinations (principal); K21.9 Gastro-esophageal reflux disease without esophagitis; F41.9 Anxiety disorder, unspecified; E66.9 Obesity, unspecified; Z68.29 Body mass index [BMI] 29.0-29.9, adult; Z87.442 Personal history of urinary calculi; Z88.5 Allergy status to narcotic agent; Z91.040 Latex allergy status; Z88.8 Allergy status to other drugs, medicaments and biological substances; Z79.899 Other long term (current) drug therapy
CPT/HCPCS: 99282; 99283

== ENCOUNTER 2022-07-05 13:47 | Emergency (ER) | payer MEDICAID ==
[2022-07-05] MEDS ORDERED: Ondansetron 4 MG/2 ML SDV IVPUSH ONE (14:20)
[2022-07-05] MEDS ORDERED: Sodium Chloride 0.9% 1,000 ML IV ONE (14:21)
[2022-07-05 14:47] LABS: CARBON DIOXIDE,CO2 28.9 mmol/L (21.0-32.0); POTASSIUM,K 4.4 mmol/L (3.5-5.1)
[2022-07-05] MEDS ORDERED: Acetaminophen 500 MG Tab PO ONE (14:50)
[2022-07-05 16:09] VITALS: BP 154/79; PULSE 58
== END 2022-07-05 16:08 | disposition home or self-care (01) ==
LOC: MW.ED 13:47
DX: R11.10 Vomiting, unspecified (principal); K21.9 Gastro-esophageal reflux disease without esophagitis; E66.9 Obesity, unspecified; Z68.32 Body mass index [BMI] 32.0-32.9, adult; Z91.048 Other nonmedicinal substance allergy status; Z88.8 Allergy status to other drugs, medicaments and biological substances; Z91.040 Latex allergy status; Z79.899 Other long term (current) drug therapy
CPT/HCPCS: 36415; 80048; 85025; 96361; 96374; 99284; A9270; J2405; J7030

== ENCOUNTER 2022-07-22 08:07 | Day surgery (SDC) | payer MEDICAID ==
[~2022-07-22 08:07] MED LIST: Lactated Ringers 1,000 ML IV SCH
[2022-07-22] MEDS ORDERED: fentaNYL 100 MCG/2 ML SDV ONE (09:44)
[2022-07-22] MEDS ORDERED: Propofol 200 MG/20 ML SDV ONE (09:44)
[2022-07-22] MEDS ORDERED: Lidocaine 2% 5 ML SDV ONE (09:44)
[2022-07-22] MEDS ORDERED: Famotidine 20 MG/2 ML SDV ONE (11:10)
[2022-07-22 11:58] VITALS: BP 128/72; PULSE 72
== END 2022-07-22 12:05 | disposition home or self-care (01) ==
LOC: MW.SDS 08:07
PROVIDERS: ATTEND Surgery
DX: K29.70 Gastritis, unspecified, without bleeding (principal); K44.9 Diaphragmatic hernia without obstruction or gangrene; F41.9 Anxiety disorder, unspecified; K21.9 Gastro-esophageal reflux disease without esophagitis; Z91.040 Latex allergy status; Z88.8 Allergy status to other drugs, medicaments and biological substances; Z91.048 Other nonmedicinal substance allergy status; Z79.899 Other long term (current) drug therapy
CPT/HCPCS: 43239; J2704; J3010; J3490; J7120

== ENCOUNTER 2022-08-10 11:28 | Emergency (ER) | payer MEDICAID | END 2022-08-10 13:28 | disposition left against medical advice (07) | LOC: MW.ED 11:28 | DX: Z53.21 Procedure and treatment not carried out due to patient leaving prior to being seen by health care provider (principal) ==

== ENCOUNTER 2022-08-19 07:08 | Emergency (ER) | payer MEDICAID ==
[2022-08-19 07:21] VITALS: BP 154/123; PULSE 79
[2022-08-19] MEDS ORDERED: Ketorolac 30 MG/ML SDV IM ONE (07:36)
[2022-08-19] MEDS ORDERED: Acetaminophen 500 MG Tab PO ONE (08:35)
[2022-08-19] MEDS ORDERED: Lidocaine 5% 700 MG Patch TRDERM ONE (10:24)
== END 2022-08-19 10:48 | disposition home or self-care (01) ==
LOC: MW.ED 07:08
DX: S20.229A Contusion of unspecified back wall of thorax, initial encounter (principal); K21.9 Gastro-esophageal reflux disease without esophagitis; E66.9 Obesity, unspecified; Z68.33 Body mass index [BMI] 33.0-33.9, adult; Z91.048 Other nonmedicinal substance allergy status; Z88.8 Allergy status to other drugs, medicaments and biological substances; Z91.040 Latex allergy status; Z79.899 Other long term (current) drug therapy; Z86.16 Personal history of COVID-19; W00.0XXA Fall on same level due to ice and snow, initial encounter
CPT/HCPCS: 71250; 72125; 72128; 96372; 99283; A9270; J1885

== ENCOUNTER 2023-04-19 07:25 | Emergency (ER) | payer SELFPAY ==
[2023-04-19 08:26] LABS: CORONAVIRUS COVID-19 NAA NEGATIVE (NEGATIVE); INFLUENZA A NAA POSITIVE (NEGATIVE); INFLUENZA B NAA NEGATIVE (NEGATIVE)
[2023-04-19 08:50] VITALS: BP 129/79; PULSE 79
== END 2023-04-19 08:49 | disposition home or self-care (01) ==
LOC: MW.ED 07:25
DX: J10.1 Influenza due to other identified influenza virus with other respiratory manifestations (principal); E66.9 Obesity, unspecified; Z86.16 Personal history of COVID-19; Z20.822 Contact with and (suspected) exposure to COVID-19; Z91.048 Other nonmedicinal substance allergy status; Z91.040 Latex allergy status; Z88.8 Allergy status to other drugs, medicaments and biological substances; Z68.34 Body mass index [BMI] 34.0-34.9, adult
CPT/HCPCS: 0240U; 99284; 99283

== ENCOUNTER 2023-05-10 18:04 | Emergency (ER) | payer MEDICAID ==
[2023-05-10] MEDS ORDERED: Ondansetron 4 MG/2 ML SDV IVPUSH ONE (18:50)
[2023-05-10] MEDS ORDERED: Ketorolac 30 MG/ML SDV IVPUSH ONE (18:50)
[2023-05-10] MEDS ORDERED: Sodium Chloride 0.9% 1,000 ML IV ONE (18:50)
[2023-05-10] MEDS ORDERED: Ondansetron 4 MG Tab.DIS PO ONE (18:58)
[2023-05-10] MEDS ORDERED: Tamsulosin 0.4 MG Cap.ER PO ONE (18:58)
[2023-05-10] MEDS ORDERED: Acetaminophen/HYDROcodone 325-5 MG Tab PO ONE (18:58)
[2023-05-10 19:17] VITALS: BP 144/98; PULSE 78
== END 2023-05-10 19:18 | disposition home or self-care (01) ==
LOC: MW.ED 18:04
DX: R10.814 Left lower quadrant abdominal tenderness (principal); E66.9 Obesity, unspecified; K21.9 Gastro-esophageal reflux disease without esophagitis; Z86.16 Personal history of COVID-19; Z88.8 Allergy status to other drugs, medicaments and biological substances; Z91.048 Other nonmedicinal substance allergy status; Z91.030 Bee allergy status; Z68.31 Body mass index [BMI] 31.0-31.9, adult; Z79.899 Other long term (current) drug therapy
CPT/HCPCS: 99283; A9270; 99284

== ENCOUNTER 2023-05-17 18:41 | Emergency (ER) | payer MEDICAID ==
[2023-05-17 19:17] VITALS: BP 140/91
[2023-05-17] MEDS ORDERED: Ondansetron 4 MG Tab.DIS PO ONE (19:29)
[2023-05-17 20:09] LABS: CORONAVIRUS COVID-19 NAA NEGATIVE (NEGATIVE); INFLUENZA A NAA NEGATIVE (NEGATIVE); INFLUENZA B NAA POSITIVE (NEGATIVE)
[2023-05-17 20:20] VITALS: PULSE 74
== END 2023-05-17 20:19 | disposition home or self-care (01) ==
LOC: MW.ED 18:41
DX: J10.1 Influenza due to other identified influenza virus with other respiratory manifestations (principal); E66.9 Obesity, unspecified; Z86.16 Personal history of COVID-19; Z20.822 Contact with and (suspected) exposure to COVID-19; Z79.899 Other long term (current) drug therapy; Z91.048 Other nonmedicinal substance allergy status; Z91.040 Latex allergy status; Z88.8 Allergy status to other drugs, medicaments and biological substances; Z68.28 Body mass index [BMI] 28.0-28.9, adult
CPT/HCPCS: 0240U; 99284; A9270; 99283

== ENCOUNTER 2023-05-24 17:01 | Emergency (ER) | payer MEDICAID ==
[2023-05-24 17:24] VITALS: BP 128/77
[2023-05-24] MEDS ORDERED: Sucralfate 1 GM Tab PO ONE (17:31)
[2023-05-24] MEDS ORDERED: Pantoprazole 40 MG Tab.CR PO STA (17:31)
[2023-05-24 17:49] VITALS: PULSE 71
== END 2023-05-24 17:48 | disposition home or self-care (01) ==
LOC: MW.ED 17:01
DX: K92.0 Hematemesis (principal); Z76.0 Encounter for issue of repeat prescription; E66.9 Obesity, unspecified; Z86.16 Personal history of COVID-19; Z79.899 Other long term (current) drug therapy; Z91.040 Latex allergy status; Z88.8 Allergy status to other drugs, medicaments and biological substances; Z91.048 Other nonmedicinal substance allergy status; Z68.28 Body mass index [BMI] 28.0-28.9, adult
CPT/HCPCS: 99283; A9270

== ENCOUNTER 2023-07-02 17:48 | Emergency (ER) | payer MEDICAID ==
[2023-07-02] MEDS: Ibuprofen 600 MG Tab PO ONE (19:52)
[2023-07-02] MEDS: Cyclobenzaprine 10 MG Tab PO ONE (19:52)
[2023-07-02 20:24] VITALS: BP 131/92; PULSE 98
== END 2023-07-02 20:23 | disposition home or self-care (01) ==
LOC: MW.ED 17:48
DX: S20.219A Contusion of unspecified front wall of thorax, initial encounter (principal); S09.90XA Unspecified injury of head, initial encounter; M54.2 Cervicalgia; M25.561 Pain in right knee; M25.562 Pain in left knee; J01.90 Acute sinusitis, unspecified; E66.9 Obesity, unspecified; Z91.040 Latex allergy status; Z91.048 Other nonmedicinal substance allergy status; Z88.8 Allergy status to other drugs, medicaments and biological substances; Z68.30 Body mass index [BMI] 30.0-30.9, adult; W13.2XXA Fall from, out of or through roof, initial encounter; Y92.009 Unspecified place in unspecified non-institutional (private) residence as the place of occurrence of the external cause
CPT/HCPCS: 70450; 71045; 72125; 99284; A9270; 99283

== ENCOUNTER 2023-08-21 09:25 | Emergency (ER) | payer MEDICAID ==
[2023-08-21] MEDS: Metoprolol Tartrate 25 MG Tab PO ONE (09:58)
[2023-08-21 10:00] VITALS: BP 155/104; PULSE 89
== END 2023-08-21 10:04 ==
LOC: MW.ED 09:25
DX: F41.9 Anxiety disorder, unspecified (principal); Z79.899 Other long term (current) drug therapy; Z88.5 Allergy status to narcotic agent; Z91.048 Other nonmedicinal substance allergy status; Z91.040 Latex allergy status
CPT/HCPCS: 99283; A9270; 99282

== ENCOUNTER 2023-11-02 09:52 | Emergency (ER) | payer MEDICAID ==
[2023-11-02 10:11] VITALS: BP 144/100; PULSE 84
== END 2023-11-02 10:38 ==
LOC: MW.ED 09:52
DX: Z02.89 Encounter for other administrative examinations (principal); Z13.9 Encounter for screening, unspecified; F17.210 Nicotine dependence, cigarettes, uncomplicated; Z91.040 Latex allergy status; Z91.048 Other nonmedicinal substance allergy status; Z88.8 Allergy status to other drugs, medicaments and biological substances; Z79.899 Other long term (current) drug therapy
CPT/HCPCS: 99283

== ENCOUNTER 2024-07-26 14:32 | Emergency (ER) | payer SELFPAY ==
[2024-07-26 14:47] VITALS: BP 161/99; PULSE 88
[2024-07-26 15:14] LABS: BASOPHILS ABSOLUTE AUTO 0.04 K/uL (0.00-0.20); BASOPHILS PERCENT AUTO 0.6 % (0.0-1.0); EOSINOPHILS ABSOLUTE AUTO 0.26 K/uL (0.00-0.45); EOSINOPHILS PERCENT AUTO 3.9 % (0.0-6.0); HEMOGLOBIN 13.4 g/dL (14.0-18.0); IMMATURE GRAN ABSOLUTE AUTO 0.01 K/uL (0.00-0.05); IMMATURE GRAN PERCENT AUTO 0.1 % (0.0-0.4); LYMPHOCYTES ABSOLUTE AUTO 2.54 K/uL (1.00-4.80); LYMPHOCYTES PERCENT AUTO 37.6 % (24.0-44.0); MEAN CORPUSCULAR HEMOGLOBIN 28.9 pg (28.0-32.0); MEAN CORPUSCULAR HGB CONC 33.5 g/dL (32.0-36.0); MEAN CORPUSCULAR VOLUME 86.2 fL (83.0-99.0); MEAN PLATELET VOLUME 9.3 fL (9.4-12.4); MONOCYTES ABSOLUTE AUTO 0.44 K/uL (0.00-0.80); MONOCYTES PERCENT AUTO 6.5 % (0.0-8.0); NEUTROPHILS ABSOLUTE AUTO 3.46 K/uL (1.80-7.70); NEUTROPHILS PERCENT AUTO 51.3 % (41.0-71.0); PLATELET COUNT,PLT 238 K/uL (150-400); RED BLOOD CELL COUNT 4.64 M/uL (4.52-5.90); WHITE BLOOD CELL COUNT,WBC 6.75 K/uL (3.9-11.3)
[2024-07-26 15:49] LABS: A/G RATIO 0.9 (0.9-1.6); ALBUMIN 3.2 g/dL (3.4-5.0); BILIRUBIN TOTAL 0.2 mg/dL (0.2-1.0); CARBON DIOXIDE,CO2 28.8 mmol/L (21.0-32.0); EST CRCL DRUG DOSING (CG) 114.24 mL/min; POTASSIUM,K 4.6 mmol/L (3.5-5.1); PROTEIN TOTAL,TP 6.9 g/dL (6.4-8.2); TSH ULTRASENSITIVE 0.75 uIU/mL (0.36-3.74)
== END 2024-07-26 16:35 | disposition home or self-care (01) ==
LOC: MW.ED 14:32
DX: R07.9 Chest pain, unspecified (principal); F17.210 Nicotine dependence, cigarettes, uncomplicated; Z75.8 Other problems related to medical facilities and other health care; Z91.040 Latex allergy status; Z91.048 Other nonmedicinal substance allergy status; Z88.8 Allergy status to other drugs, medicaments and biological substances; Z79.899 Other long term (current) drug therapy
CPT/HCPCS: 36415; 71045; 71045-26; 80053; 83880; 84443; 84484; 85025; 93005; 99285

== ENCOUNTER 2025-01-02 10:12 | Emergency (ER) | payer MEDICAID ==
[2025-01-02 10:49] VITALS: BP 149/101; PULSE 88
== END 2025-01-02 10:49 | disposition home or self-care (01) ==
LOC: MW.ED 10:12
DX: Z02.89 Encounter for other administrative examinations (principal)
CPT/HCPCS: 99282; 99283